=== PATIENT | female | born 1995 | race Caucasian/White ===

== ENCOUNTER 2017-03-06 12:28 | Emergency (ER) | payer BC ==
[~2017-03-06] VITALS: Ht 165.1 cm; Wt 59.0 kg
[~2017-03-06 12:28] MED LIST: CLXUNK
[2017-03-06 12:37] VITALS: TEMP 37; Ht 165.1 cm; Wt 59.0 kg
[2017-03-06] MEDS ORDERED: SODIUM CHLORIDE 0.9% 1000ML 1,000 ML IV STA (13:31)
[2017-03-06] MEDS ORDERED: LORAZEPAM 2 MG/ML 1 ML VIAL IV STA (13:33)
[2017-03-06] MEDS ORDERED: KETOROLAC TROMETHAMINE 30 MG/ML VIAL IV STA (13:33)
[2017-03-06] MEDS ORDERED: DULO-24 PO (13:48)
[2017-03-06 14:22] LABS: BASO % 0.3 %; BASO ABS # 0.02 K/uL (0-0.2); COMPLETE YES; HEMATOCRIT 37.8 % (37-47); IG% 0.1 %; LYMPH % 22.4 %; LYMPH ABS # 1.51 K/uL (1.2-3.4); MEAN CELL VOLUME 92.9 fL (80-100); MEAN CORPUSCULAR HEMOGLOBIN 32.4 pg (25-34); MEAN CORPUSCULAR HGB CONC 34.9 g/dl (32-36); MEAN PLATELET VOLUME 10.1 fL (7.4-10.4); MONO % 11.4 %; NEUT % 62.8 %; PLATELET COUNT 328 K/uL (130-400); RED BLOOD COUNT 4.07 M/uL (4.2-5.4); WHITE BLOOD COUNT 6.75 K/uL (4.8-10.8)
[2017-03-06 14:24] LABS: MANUAL MICROSCOPIC REQUIRED? NO; REVIEW REQ? NO; URINE APPEARANCE CLEAR (CLEAR); URINE BILIRUBIN NEG (NEG); URINE COLOR YELLOW; URINE NITRITE NEG (NEG); URINE PH 8.5 (4.5-7.5); URINE SPECIFIC GRAVITY 1.013 (1.000-1.030); UROBILINOGEN NEG (NEG)
[2017-03-06 14:26] VITALS: O2SAT 100
[2017-03-06 14:32] LABS: BUN/CREATININE RATIO 12.6 (10-20); CREATININE 0.7 mg/dl (0.60-1.20); MAGNESIUM 2.2 mg/dl (1.8-2.4)
[2017-03-06 14:41] LABS: THYROID STIMULATING HORMONE 1.19 uIu/ml (0.300-4.500)
[2017-03-06 14:46] LABS: PREG INTERNAL NEGATIVE QC NEG CLEAR BACKGROUND; PREG INTERNAL POSITIVE QC POS CONTROL LINE
--- NOTE | 2017-03-06 15:18 | DIAGNOSTIC IMAGING REPORT ---
MRI OF THE BRAIN WITHOUT IV CONTRAST CLINICAL HISTORY: Headache. Lower extremity paralysis. Syncope. COMPARISON STUDY: MRI of the brain dated 03/26/2015. TECHNIQUE: MRI of the brain was performed utilizing various T1 and T2-weighted sequences in the axial, sagittal, and coronal planes. IV contrast was not administered for this examination. FINDINGS: Brain parenchyma: The brain parenchyma is normal in appearance. There is no hemorrhage or mass effect. There is no restricted diffusion to suggest acute ischemia. Nunn-white matter differentiation is preserved. No extra-axial fluid collection is seen. The cerebellar tonsils are normal in configuration. Ventricles, sulci, and cisterns: Normal in configuration. Pituitary and sella: Unremarkable. Intracranial vasculature: Normal flow voids are maintained at the skull base. Orbits: The bony orbits are grossly intact. Orbital contents are normal in appearance. Sinuses and mastoids: A tiny retention cyst is noted in the left maxillary antrum. The paranasal sinuses and mastoid air cells are otherwise clear. Calvarium: Unremarkable. Cervical cord: Partially visualized cervical spinal cord is normal in morphology and signal intensity. IMPRESSION: Unremarkable unenhanced MRI of the brain. Electronically signed by: Stanislaw Grace M.D. 03/06/2017 3:16 PM Dictated Date/Time: 03/06/2017 3:13 PM
[2017-03-06 15:54] VITALS: BP 105/63; PULSE 79; O2SAT 100
--- NOTE | 2017-03-06 17:18 | EMERGENCY ROOM VISIT NOTE ---
History Report prepared by Anthony: Sharan Hooker Under the Supervision of: Dr. Ozzie Garza M.D. First contact with patient: 13:26 Chief Complaint: ANXIETY Stated Complaint: SYNCOPE History of Present Illness The patient is a 21 year old female with a history of migraines who presents to the Emergency Room with complaints of improved dizziness that occurred earlier today. The patient was sitting at [employer] when she became dizzy. She is having trouble moving her legs and left arm, which sometimes accompanies her migraines. The patient was also experienced tremors of her extremities which is now resolved. She has a mild headache now and notes that her vision seemed a little blurry earlier today. Her last complex migraine was this past Fall. She follows up with Dr. Blue in Neurology. The patient had Aleve around 1130. She missed her Cymbalta this morning but denies feeling anxious. She denies any history of seizures. The patient denies any recent illness or cold symptoms. Patient denies LOC, fevers, chills, diaphoresis, neck pain, chest pain, breathing difficulties, nausea, vomiting, abdominal pain, back pain, melena, hematochezia, urinary symptoms, numbness, lymphadenopathy, rash, or other complaints. Source of History: patient Onset: today Position: other (global) Quality: other (dizziness) Timing: other (improved) Associated Symptoms: + headache, + weakness Review of Systems See HPI for pertinent positives and negatives. A total of ten systems were reviewed and were otherwise negative. Past Medical & Surgical Medical Problems: (1) Hx of migraines Family History Seizures Social History Smoking Status: Never Smoker Housing Status: lives with family Current/Historical Medications Scheduled Control Pills ( Control Pills), 1 TAB PO DAILY Duloxetine HCl (Cymbalta), 20 MG PO DAILY Allergies Coded Allergies: Acetaminophen (Unverified Allergy, Unknown, ITCHY, 03/06/17) Amoxicillin (Unverified Allergy, Unknown, HIVES, 03/06/17) Codeine (Unverified Allergy, Unknown, ITCHY, 03/06/17) Physical Exam Vital Signs Date Time Temp Pulse Resp B/P Pulse Ox O2 Delivery O2 Flow Rate FiO2 03/06/17 15:54 79 105/63 100 03/06/17 14:26 100 Room Air 03/06/17 13:46 71 102/65 97 89/70 82 106/77 03/06/17 12:37 37.0 80 20 113/72 100 Room Air Physical Exam GENERAL: Awake, alert, well appearing, no distress HENT: Normocephalic, atraumatic. Oropharynx unremarkable. EYES: PERRL. EOMI. Normal conjunctiva. Sclera non-icteric. NECK: Supple. No nuchal rigidity. FROM. No JVD or bruit. RESPIRATORY: CTA CARDIAC: RRR. No murmur. ABDOMEN: Soft, non distended. No tenderness to palpation. No rebound or guarding. No masses. RECTAL: Deferred. MUSCULOSKELETAL: Unremarkable. No edema. No discoloration. Gross motor strength symmetric. NEURO: Cranial nerves 2-12 grossly intact. Speech normal. No pronator drift. Difficulty lifting left arm and left leg, however there is no drift in either extremity. SKIN: No rash or jaundice noted. LYMPH: No adenopathy. Medical Decision & Procedures ER Provider Diagnostic Interpretation: Radiology results as stated below per my review and radiologist interpretation MRI OF THE BRAIN WITHOUT IV CONTRAST CLINICAL HISTORY: Headache. Lower extremity paralysis. Syncope. COMPARISON STUDY: MRI of the brain dated 03/26/2015. TECHNIQUE: MRI of the brain was performed utilizing various T1 and T2-weighted sequences in the axial, sagittal, and coronal planes. IV contrast was not administered for this examination. FINDINGS: Brain parenchyma: The brain parenchyma is normal in appearance. There is no hemorrhage or mass effect. There is no restricted diffusion to suggest acute ischemia. Nunn-white matter differentiation is preserved. No extra-axial fluid collection is seen. The cerebellar tonsils are normal in configuration. Ventricles, sulci, and cisterns: Normal in configuration. Pituitary and sella: Unremarkable. Intracranial vasculature: Normal flow voids are maintained at the skull base. Orbits: The bony orbits are grossly intact. Orbital contents are normal in appearance. Sinuses and mastoids: A tiny retention cyst is noted in the left maxillary antrum. The paranasal sinuses and mastoid air cells are otherwise clear. Calvarium: Unremarkable. Cervical cord: Partially visualized cervical spinal cord is normal in morphology and signal intensity. IMPRESSION: Unremarkable unenhanced MRI of the brain. Electronically signed by: Stanislaw Grace M.D. 03/06/2017 3:16 PM Dictated Date/Time: 03/06/2017 3:13 PM Laboratory Results 03/06/17 14:05 Red Blood Count 4.07, Mean Corpuscular Volume 92.9, Mean Corpuscular Hemoglobin 32.4, Mean Corpuscular Hemoglobin Concent 34.9, Mean Platelet Volume 10.1, Neutrophils (%) (Auto) 62.8, Lymphocytes (%) (Auto) 22.4, Monocytes (%) (Auto) 11.4, Eosinophils (%) (Auto) 3.0, Basophils (%) (Auto) 0.3, Neutrophils # (Auto ) 4.24, Lymphocytes # (Auto) 1.51, Monocytes # (Auto) 0.77, Eosinophils # (Auto ) 0.20, Basophils # (Auto) 0.02 03/06/17 14:05 Test 03/06/17 13:53 03/06/17 14:05 Urine Color YELLOW Urine Appearance CLEAR (CLEAR) Urine pH 8.5 (4.5-7.5) Urine Specific [place] 1.013 (1.000-1.030) Urine Protein NEG (NEG) Urine Glucose (UA) NEG (NEG) Urine Ketones NEG (NEG) Urine Occult Blood NEG (NEG) Urine Nitrite NEG (NEG) Urine Bilirubin NEG (NEG) Urine Urobilinogen NEG (NEG) Urine Leukocyte Esterase NEG (NEG) White Blood Count 6.75 K/uL (4.8-10.8) Red Blood Count 4.07 M/uL (4.2-5.4) Hemoglobin 13.2 g/dL (12.0-16.0) Hematocrit 37.8 % (37-47) Mean Corpuscular Volume 92.9 fL (80-100) Mean Corpuscular Hemoglobin 32.4 pg (25-34) Mean Corpuscular Hemoglobin Concent 34.9 g/dl (32-36) Platelet Count 328 K/uL (130-400) Mean Platelet Volume 10.1 fL (7.4-10.4) Neutrophils (%) (Auto) 62.8 % Lymphocytes (%) (Auto) 22.4 % Monocytes (%) (Auto) 11.4 % Eosinophils (%) (Auto) 3.0 % Basophils (%) (Auto) 0.3 % Neutrophils # (Auto) 4.24 K/uL (1.4-6.5) Lymphocytes # (Auto) 1.51 K/uL (1.2-3.4) Monocytes # (Auto) 0.77 K/uL (0.11-0.59) Eosinophils # (Auto) 0.20 K/uL (0-0.5) Basophils # (Auto) 0.02 K/uL (0-0.2) RDW Standard Deviation 43.7 fL (36.4-46.3) RDW Coefficient of Variation 13.0 % (11.5-14.5) Immature Granulocyte % (Auto) 0.1 % Immature Granulocyte # (Auto) 0.01 K/uL (0.00-0.02) Anion Gap 9.0 mmol/L (3-11) Est Creatinine Clear Calc Drug Dose 116.3 ml/min Estimated GFR () 145.6 Estimated GFR (Non- 125.6 BUN/Creatinine Ratio 12.6 (10-20) Calcium Level 9.0 mg/dl (8.5-10.1) Magnesium Level 2.2 mg/dl (1.8-2.4) Total Bilirubin 0.4 mg/dl (0.2-1) Direct Bilirubin 0.1 mg/dl (0-0.2) Aspartate Amino Transf (AST/SGOT) 14 U/L (15-37) Alanine Aminotransferase (ALT/SGPT) 20 U/L (12-78) Alkaline Phosphatase 50 U/L (45-117) Total Creatine Kinase 39 U/L (26-192) Total Protein 7.3 gm/dl (6.4-8.2) Albumin 3.8 gm/dl (3.4-5.0) Lipase 131 U/L (73-393) Thyroid Stimulating Hormone (TSH) 1.190 uIu/ml (0.300-4.500) Human Chorionic Gonadotropin, Qual NEG (NEG) Laboratory results reviewed by me Medications Administered Medications (Trade) Dose Ordered Sig/Greta Route Start Time Stop Time Status Last Admin Dose Admin Sodium Chloride (Nss 1000ml) 1,000 ml @ 999 mls/hr Q1H1M STAT IV 03/06/17 13:31 03/06/17 14:31 DC 03/06/17 14:20 999 MLS/HR Ketorolac Tromethamine (Toradol Inj) 10 mg NOW STAT IV 03/06/17 13:33 03/06/17 13:36 DC 03/06/17 14:20 10 MG Lorazepam (Ativan Inj) 0.5 mg NOW STAT IV 03/06/17 13:33 03/06/17 13:36 DC 03/06/17 14:21 0.5 MG ECG Indication: weakness Rate (beats per minute): 69 Rhythm: normal sinus Findings: no acute ischemic change, no ectopy ED Course 1328: The patient was evaluated in room C2b. A complete history and physical exam was performed. 1331: NSS 1000 ml @ 999 mls/hr. 1333: Ativan 0.5 mg IV, Toradol 10 mg IV. 1430: Updated the patient. 1530: The patient is now able to move all extremities without difficulty. Updated her and her parents. The patient will be prepared for discharge. 1535: Discussed the case with Dr. Garcia, Neurologist. Medical Decision Prior records/ancillary studies reviewed. Triage Nursing notes reviewed and agree them. The patient's history was concerning for headache. Differential diagnosis: Etiologies such as complex migraine headache, meningitis, sinusitis, CO exposure , ICH, SAH, infection, tumor, headache, sinus thrombosis, arterial dissection, CVA, as well as others were entertained. Physical examination findings: As above. Non-focal. ER treatment provided: Normal saline hydration IV Toradol IV Ativan On reassessment the patient felt better. Diagnostics interpreted by me: ECG: Normal as above. The labs revealed a normal CBC and chemistry panel. Magnesium, , LFTs , and lipase were negative. Imaging studies: MRI as above After the above treatment and diagnostic testing the patient was reevaluated and all symptoms resolved. She felt back to normal. Consultation: A consultation was placed with the neurologist traffic monitor specialist Dr. Garcia. The case was discussed and diagnostics were reviewed. He felt that this is likely a complex migraine as the patient's symptoms resolved completely and she has a history of the same. He asked that the patient call the office tomorrow to set up follow- up appointment. By the evaluation outlined above emergent etiologies such as meningitis, sinusitis, CO exposure, ICH, SAH, infection, temporal arteritis, tumor, sinus thrombosis, arterial dissection, as well as others were deemed relatively unlikely. The patient and family were informed about the findings as listed above. All questions were answered and they were pleased with the treatment. Return instructions were outlined and the patient was discharged in stable condition. Outpatient prescription management: None Referral: The patient was referred back to neurology for a recheck of the current condition. The chart was completed utilizing [employer] Speech voice recognition software. Grammatical errors, random word insertions, pronoun errors, and incomplete sentences are an occasional consequence of this system due to software limitations, ambient noise, and hardware issues. Any formal questions or concerns about the content, text, or information contained within the body of this dictation should be directly addressed to the physician for clarification. Consults Time Called: 1529 Consulting Physician: Dr. Garcia, Neurologist Returned Call: [phone]: Discussed the case with Dr. Garcia, Neurologist. Impression Primary Impression: Headache Additional Impression: Weakness Scribe Attestation The scribe's documentation has been prepared under my direction and personally reviewed by me in its entirety. I confirm that the note above accurately reflects all work, treatment, procedures, and medical decision making performed by me. Departure Information Dispostion Home / Self-Care Referrals No Doctor, Assigned (PCP) Forms HOME CARE DOCUMENTATION FORM, IMPORTANT VISIT INFORMATION Patient Instructions My [facility] Additional Instructions HEADACHE INSTRUCTIONS: DO NOT drive, drink alcohol, operate machinery, or perform dangerous activities today. You were given medications in the ER that can affect your ability to safely function or operate a vehicle. Rest today in a quiet, peaceful, dark environment and get a full 8-10 hrs of sleep tonight. Avoid loud noises, smoke/smoking, alcohol, bright lights, stress, or physical exertion today to minimize the chance the headache may return. Continue current medications. Ibuprofen(Motrin, Advil) may be used for fever or pain. Use 600mg every six hours as needed. Take with food. Avoid using more than 2400mg in a 24 hour period. Do not use 2400mg per day for more than three consecutive days without physician direction. Prolonged inappropriate use can lead to stomach upset or ulcers. Return to the ER for passing out, worsening headache, vision problems, neck stiffness/pain, fevers, vomiting, worsening of your condition, or as needed. Follow up with your neurologist on Tuesday for a recheck of your current condition. Problem Qualifiers
[2017-03-24] MEDS ORDERED: CYM/30 PO (13:20)
[2017-03-24] MEDS ORDERED: MULT-506 PO (13:20)
[2017-03-24] MEDS ORDERED: CETI10CA PO (13:20)
[2017-03-24] MEDS ORDERED: PROP1TAB PO (13:20)
[2017-03-24] MEDS ORDERED: BCPILLS PO (13:48)
== END 2017-03-06 15:55 | disposition home or self-care (01) ==
LOC: EDBD 12:28 → C.EDC 12:29
DX: R51 Headache (principal); R53.1 Weakness; Z82.0 Family history of epilepsy and other diseases of the nervous system

== ENCOUNTER 2017-03-09 12:06 | Emergency (ER) | payer BC ==
[~2017-03-09] VITALS: Ht 165.1 cm; Wt 58.4 kg
[~2017-03-09 12:06] MED LIST changes: -CLXUNK; +DULO-24 PO
[2017-03-09 12:13] VITALS: Ht 165.1 cm; Wt 58.4 kg
[2017-03-09] MEDS ORDERED: SODIUM CHLORIDE 0.9% 1000ML 1,000 ML IV STA (12:49)
[2017-03-09] MEDS ORDERED: LORAZEPAM 2 MG/ML 1 ML VIAL IV STA ×2 (12:49→15:13)
[2017-03-09] MEDS ORDERED: METH4PAK PO (13:20)
[2017-03-09] MEDS ORDERED: MELA1TAB5 PO (13:20)
[2017-03-09 13:26] LABS: BASO % 0.2 %; BASO ABS # 0.02 K/uL (0-0.2); COMPLETE YES; EOS % 0.2 %; HEMATOCRIT 39.5 % (37-47); IG% 0.3 %; LYMPH ABS # 1.19 K/uL (1.2-3.4); MEAN CELL VOLUME 95.4 fL (80-100); MEAN CORPUSCULAR HEMOGLOBIN 32.6 pg (25-34); MEAN CORPUSCULAR HGB CONC 34.2 g/dl (32-36); MEAN PLATELET VOLUME 10.2 fL (7.4-10.4); MONO % 7.3 %; PLATELET COUNT 354 K/uL (130-400); RED BLOOD COUNT 4.14 M/uL (4.2-5.4); WHITE BLOOD COUNT 13.15 K/uL (4.8-10.8)
[2017-03-09 14:01] LABS: BUN/CREATININE RATIO 9.3 (10-20); CALCIUM 9.1 mg/dl (8.5-10.1); CREATININE 0.78 mg/dl (0.60-1.20); POTASSIUM 3.9 mmol/L (3.5-5.1)
[2017-03-09 14:04] LABS: ALB/GLOB RATIO 0.9 (0.9-2)
[2017-03-09 15:21] LABS: LYME DISEASE AB IGG NEG (NEG)
[2017-03-09 15:24] LABS: LYME DISEASE AB IGM NEG (NEG)
[2017-03-09] MEDS ORDERED: ATIVAN 1MG HOMEPACK PO ONE (15:30)
--- NOTE | 2017-03-09 15:31 | EMERGENCY ROOM VISIT NOTE ---
History Report prepared by Anthony: Lesvia Olivera Under the Supervision of: Dr. Rafy Teague M.D. First contact with patient: 12:40 Chief Complaint: OTHER COMPLAINT Stated Complaint: MUSCLE TWITCHING/SPASMS History of Present Illness The patient is a 21 year old female who presents to the Emergency Room with complaints of intermittent twitching that started 3 days ago. She is unsure of if the twitching occurs while she sleeps, but she has been able to sleep normally. The patient's symptoms started 3 days ago when she was in [employer]odoxy. The patient states that she felt dizzy and developed a headache while she was in orthodoxy. She states that with her typical migraines her limbs occasionally go numb, but instead she developed twitching. The patient's mother states that their friend is a PA-C and she recommended coming into the ED 3 days ago. The patient was worked up for the same symptoms when she came to the ED 3 days ago and a MRI of her brain was unremarkable. The patient also had a negative test. The patient has an appointment to follow-up with Neurology tomorrow, but the patient states that she has been missing class secondary to the twitching so she felt that she needed to be evaluated sooner. The patient denies any trouble eating. She also experiences intermittent headaches, but denies any headache currently. The patient denies any recent drugs or alcohol. The patient's mother adds that the patient started a Medrol pack 2 days ago. The patient's mother also adds that the patient fell 3 nights ago while she was getting ready for bed. Source of History: patient Onset: 3 days ago Position: other (global) Quality: other (twitching) Timing: intermittent Associated Symptoms: + headache Note: no trouble eating Review of Systems See HPI for pertinent positives & negatives. A total of 10 systems reviewed and were otherwise negative. Past Medical & Surgical Medical Problems: (1) Hx of migraines Family History Seizures Social History Smoking Status: Never Smoker Housing Status: lives with family Current/Historical Medications Scheduled Control Pills ( Control Pills), 1 TAB PO DAILY Duloxetine HCl (Cymbalta), 1 CAP PO DAILY Melatonin (Kp Melatonin), 1 TAB PO HS Methylprednisolone (Medrol Dosepak), 1 PKT PO UD Multivitamin (Multivitamin), 1 TAB PO DAILY Propranolol (Inderal), 60 MG PO HS Scheduled PRN Cetirizine Hcl (Zyrtec Allergy), 10 MG PO DAILY PRN for PRN FOR ALLERGIES Allergies Coded Allergies: Acetaminophen (Unverified Allergy, Unknown, ITCHY, 03/09/17) Amoxicillin (Unverified Allergy, Unknown, HIVES, 03/09/17) Codeine (Unverified Allergy, Unknown, ITCHY, 03/09/17) Physical Exam Vital Signs Date Time Temp Pulse Resp B/P Pulse Ox O2 Delivery O2 Flow Rate FiO2 03/09/17 15:48 36.6 72 18 109/74 99 03/09/17 15:24 72 109/74 99 03/09/17 13:45 77 104/66 100 03/09/17 12:13 36.6 84 18 110/72 99 Room Air Physical Exam GENERAL: Patient is well appearing and in no acute distress. HEENT: No acute trauma, normocephalic atraumatic, mucous membranes moist, no nasal congestion, no scleral icterus. NECK: No stridor, no adenopathy, no meningismus, trachea is midline. LUNGS: No dyspnea. Clear to auscultation and equal bilaterally. No wheeze, no rhonchi. HEART: Regular rate and rhythm. No murmurs, rubs, gallops appreciated. ABDOMEN: Soft, nontender, bowel sounds positive, no masses appreciated, no peritonitis. BACK: No midline tenderness, no CVA tenderness EXTREMITIES: Normal motion all extremities, no cyanosis, no edema. NEUROLOGIC: Alert and oriented, periodic stuttering speech vs clear non- problematic speech, periodic shaking with course to fine tremors that are nonspecific throughout arms and upper body, when asked legs shake, no acute motor or sensory deficits, no focal weakness, cranial nerves grossly intact. SKIN: No rash, no jaundice, no diaphoresis. Medical Decision & Procedures Laboratory Results 03/09/17 13:05 Red Blood Count 4.14, Mean Corpuscular Volume 95.4, Mean Corpuscular Hemoglobin 32.6, Mean Corpuscular Hemoglobin Concent 34.2, Mean Platelet Volume 10.2, Neutrophils (%) (Auto) 83.0, Lymphocytes (%) (Auto) 9.0, Monocytes (%) (Auto) 7.3, Eosinophils (%) (Auto) 0.2, Basophils (%) (Auto) 0.2, Neutrophils # (Auto) 10.92, Lymphocytes # (Auto) 1.19, Monocytes # (Auto) 0.96, Eosinophils # (Auto) 0.02, Basophils # (Auto) 0.02 03/09/17 13:05 Test 03/09/17 13:05 White Blood Count 13.15 K/uL (4.8-10.8) Red Blood Count 4.14 M/uL (4.2-5.4) Hemoglobin 13.5 g/dL (12.0-16.0) Hematocrit 39.5 % (37-47) Mean Corpuscular Volume 95.4 fL (80-100) Mean Corpuscular Hemoglobin 32.6 pg (25-34) Mean Corpuscular Hemoglobin Concent 34.2 g/dl (32-36) Platelet Count 354 K/uL (130-400) Mean Platelet Volume 10.2 fL (7.4-10.4) Neutrophils (%) (Auto) 83.0 % Lymphocytes (%) (Auto) 9.0 % Monocytes (%) (Auto) 7.3 % Eosinophils (%) (Auto) 0.2 % Basophils (%) (Auto) 0.2 % Neutrophils # (Auto) 10.92 K/uL (1.4-6.5) Lymphocytes # (Auto) 1.19 K/uL (1.2-3.4) Monocytes # (Auto) 0.96 K/uL (0.11-0.59) Eosinophils # (Auto) 0.02 K/uL (0-0.5) Basophils # (Auto) 0.02 K/uL (0-0.2) RDW Standard Deviation 45.5 fL (36.4-46.3) RDW Coefficient of Variation 13.1 % (11.5-14.5) Immature Granulocyte % (Auto) 0.3 % Immature Granulocyte # (Auto) 0.04 K/uL (0.00-0.02) Anion Gap 9.0 mmol/L (3-11) Est Creatinine Clear Calc Drug Dose 104.4 ml/min Estimated GFR () 127.7 Estimated GFR (Non- 110.2 BUN/Creatinine Ratio 9.3 (10-20) Calcium Level 9.1 mg/dl (8.5-10.1) Total Bilirubin 0.4 mg/dl (0.2-1) Aspartate Amino Transf (AST/SGOT) 9 U/L (15-37) Alanine Aminotransferase (ALT/SGPT) 20 U/L (12-78) Alkaline Phosphatase 50 U/L (45-117) Total Creatine Kinase 33 U/L (26-192) Total Protein 7.8 gm/dl (6.4-8.2) Albumin 3.7 gm/dl (3.4-5.0) Globulin 4.1 gm/dl (2.5-4.0) Albumin/Globulin Ratio 0.9 (0.9-2) Lyme Disease IgG Antibody NEG (NEG) Lyme Disease IgM Antibody NEG (NEG) Monoscreen NEG (NEG) Laboratory results as reviewed by me. Medications Administered Medications (Trade) Dose Ordered Sig/Greta Route Start Time Stop Time Status Last Admin Dose Admin Lorazepam 0.5 mg 0.5 mg NOW STAT IV 03/09/17 12:49 03/09/17 12:51 DC 03/09/17 13:10 0.5 MG Sodium Chloride (Nss 1000ml) 1,000 ml @ 999 mls/hr Q1H1M STAT IV 03/09/17 12:49 03/09/17 13:49 DC 03/09/17 13:12 999 MLS/HR Lorazepam (Ativan Inj) 0.5 mg NOW STAT IV 03/09/17 15:13 03/09/17 15:14 DC 03/09/17 15:24 0.5 MG Lorazepam (Ativan 1MG Home Pack) 1 homepack UD ONCE PO 03/09/17 15:30 03/09/17 15:31 DC 03/09/17 15:43 1 HOMEPACK ED Course 1243: The patient was evaluated in room B7. A complete history and physical exam was performed. 1249: Ordered Sodium Chloride 1000 ml @ 999 mls/hr IV, Ativan Inj 0.5 mg IV 1322: I reassessed the patient. Her shakes have resolved, but when I asked about shaking she began to slightly shake again. 1445: Discussed the patient's case with Dr. Bowling - Neurology. She agrees with having the patient follow-up in the office tomorrow and she is going to see the patient. She also feels that it is perfectly reasonable to do outpatient follow-up and give her Ativan for at home. 1508: I reassessed the patient. She is experiencing an increase in her tremors. The patient and her mother are comfortable with going home and following up tomorrow if the Lyme is negative. However, the machine for the Lyme test was broken so it is going to be another 15-30 minutes. 1513: Ativan Inj 0.5 mg IV 1530: Ordered Lorazepam 1 homepack PO 1535: Reevaluated the patient. Discussed results and discharge instructions: the patient and her mother verbalized understanding and agreement. The patient is ready for discharge. Medical Decision Differential: Sepsis, Infectious (UTI/Pneumonia/Meningitis/etc), Metabolic/ Electrolyte Abnormality, Cardiac, Hepatic, Endocrine, Toxicologic, Neurologic, amongst other pathologies entertained. Pleasant 21 yr old female with headache and weakness episode evaluated a few days ago with extensive testing including normal MRI brain. Arrives for continued shaking since then. Clearly seems to be voluntary as worsens any time I bring it up and symptoms are very variable with periodic stuttering. With normal brain, normal labs, no meningitic/encephalopathic findings, normal lyme, and non-choreiform movements I do not feel she requires further inpatient testing/evaluation. Reviewed with her neurologist who agrees and will evaluate her in clinic tomorrow. She is stable and in no distress and symptoms clearly improve when given Ativan. Mild dry red rash over cheeks/lateral arms towards discharge but she does not appear to be allergic and I suspect it is more reactive to sheets as not under shift. Reviewed symptoms requiring return with mother and patient. Consults Time Called: [phone] Consulting Physician: Dr. Bowling - Neurology Returned Call: [phone] Discussed the patient's case with Dr. Bowling - Neurology. She agrees with having the patient follow-up in the office tomorrow and she is going to see the patient. She also feels that it is perfectly reasonable to do outpatient follow- up and give her Ativan for at home. Impression Primary Impression: Tremor Additional Impression: Episode of shaking Scribe Attestation The scribe's documentation has been prepared under my direction and personally reviewed by me in its entirety. I confirm that the note above accurately reflects all work, treatment, procedures, and medical decision making performed by me. Departure Information Dispostion Home / Self-Care Referrals Katelynn Steen M.D. (PCP) Forms HOME CARE DOCUMENTATION FORM, IMPORTANT VISIT INFORMATION, WORK / SCHOOL INSTRUCTIONS Patient Instructions My [facility] Additional Instructions Follow up with Neurologist tomorrow as planned. Return immediately if severe headache, neck stiffness, fevers, passing out, altered mental status or other concerns. You have received a benzodiazepine sedative medication. These medications may cause drowsiness and should not be used with other sedative medications. Do not drive, drink alcohol, perform dangerous activities, nor make important decisions after taking these medications. vermin exterminator use or inappropriate use may lead to addiction. Problem Qualifiers
[2017-03-09 15:48] VITALS: BP 109/74; PULSE 72; TEMP 36.6; O2SAT 99
[2017-03-24] MEDS ORDERED: PROP1TAB PO (13:20)
[2017-03-24] MEDS ORDERED: CETI10CA PO (13:20)
[2017-03-24] MEDS ORDERED: MULT-506 PO (13:20)
[2017-03-24] MEDS ORDERED: CYM/30 PO (13:20)
[2017-03-24] MEDS ORDERED: BCPILLS PO (13:48)
== END 2017-03-09 15:50 | disposition home or self-care (01) ==
LOC: C.EDB 12:07
DX: R25.1 Tremor, unspecified (principal); R25.3 Fasciculation; Z79.3 Long term (current) use of hormonal contraceptives; Z79.899 Other long term (current) drug therapy; Z82.0 Family history of epilepsy and other diseases of the nervous system

== ENCOUNTER 2017-03-24 17:16 | Emergency (ER) | payer BC ==
[~2017-03-24] VITALS: Ht 165.1 cm; Wt 57.2 kg
[~2017-03-24 17:16] MED LIST changes: +BCPILLS PO; +CETI10CA PO; +CYM/30 PO; -DULO-24 PO; +MELA1TAB5 PO; +METH4PAK PO; +MULT-506 PO; +PROP1TAB PO
[2017-03-24 17:23] VITALS: TEMP 36.9; Ht 165.1 cm; Wt 57.2 kg
[2017-03-24] MEDS ORDERED: ONDANSETRON INJ 2 MG/ML 2 ML VIAL IV STA (17:42)
[2017-03-24] MEDS ORDERED: SODIUM CHLORIDE 0.9% 1000ML 1,000 ML, SODIUM CHLORIDE 0.9% 1000ML 1,000 ML IV ONE (17:45)
[2017-03-24] MEDS ORDERED: MELA3TAB PO (17:51)
[2017-03-24] MEDS ORDERED: DIGE1CAP7 PO (17:51)
[2017-03-24] MEDS ORDERED: HYDR25CA PO (17:51)
[2017-03-24] MEDS ORDERED: MAGN250T22 PO (17:51)
[2017-03-24] MEDS ORDERED: CYAN100020 PO (17:51)
[2017-03-24 18:43] LABS: HEMATOCRIT 41.9 % (37-47); MEAN CELL VOLUME 93.5 fL (80-100); MEAN CORPUSCULAR HEMOGLOBIN 31.3 pg (25-34); MEAN CORPUSCULAR HGB CONC 33.4 g/dl (32-36); MEAN PLATELET VOLUME 9.8 fL (7.4-10.4); PLATELET COUNT 241 K/uL (130-400); RED BLOOD COUNT 4.48 M/uL (4.2-5.4); WHITE BLOOD COUNT 8.24 K/uL (4.8-10.8)
[2017-03-24 19:03] LABS: BUN/CREATININE RATIO 10.4 (10-20); CALCIUM 9.2 mg/dl (8.5-10.1); CREATININE 0.72 mg/dl (0.60-1.20); POTASSIUM 3.9 mmol/L (3.5-5.1)
[2017-03-24 19:06] LABS: ALB/GLOB RATIO 0.8 (0.9-2)
[2017-03-24 19:13] LABS: BASO % 0.4 %; BASO ABS # 0.03 K/uL (0-0.2); COMPLETE YES; DOHLE BODIES 1+; EOS % 0.1 %; IG% 0.6 %; LYMPH % 8.7 %; LYMPH ABS # 0.72 K/uL (1.2-3.4); MONO % 25.5 %; NEUT % 64.7 %; TOXIC GRANULATION 1+
[2017-03-24 20:03] LABS: URINE APPEARANCE CLEAR (CLEAR); URINE COLOR DK YELLOW; URINE EPITHELIAL CELL AUTO >30 /lpf (0-5); URINE NITRITE NEG (NEG); URINE PH 6.5 (4.5-7.5); URINE SPECIFIC GRAVITY 1.032 (1.000-1.030); UROBILINOGEN NEG (NEG); ZZUR CULT IF INDIC CLEAN CATCH NO
[2017-03-24 20:07] LABS: MANUAL MICROSCOPIC REQUIRED? NO; REVIEW REQ? NO; URINE BILIRUBIN 1+ (NEG)
[2017-03-24] MEDS ORDERED: ONDANSETRON HOME PACK 4MG OD TAB PO ONE (21:30)
[2017-03-24 21:42] VITALS: BP 111/66; PULSE 96; O2SAT 98
--- NOTE | 2017-03-25 22:02 | EMERGENCY ROOM VISIT NOTE ---
History First contact with patient: 17:25 Chief Complaint: FEVER Stated Complaint: DEHYDRATION,DIARRHEA,FEVER History of Present Illness The patient is a 21 year old female who presents to the Emergency Room with complaints of fever and profound diarrhea for the past 3 days. The patient states that she is having 10 to 12 episode of watery diarrhea each day. She denies recent travel history or antibiotic usage. Patient has abdominal cramping but not distinct abdominal pain. She also reports a low-grade fever at home. The patient went to urgent care clinic who referred her here for her dehydration. The patient has not had symptoms like this chronically. She does not have known exposure to disease. She rates her discomfort a 7/10. Review of Systems More than 10 systems were reviewed and otherwise negative with the exception of history of present illness. Past Medical/Surgical History Medical Problems: (1) Hx of migraines Family History Seizures Social History Smoking Status: Never Smoker Housing Status: lives with family Current/Historical Medications Scheduled Control Pills ( Control Pills), 1 TAB PO DAILY Cyanocobalamin (Vitamin B12), 1 TAB PO HS Digestive Enzymes (Digestive Enzymes), 1 CAP PO HS Duloxetine HCl (Cymbalta), 30 MG PO QAM Magnesium Oxide (Magnesium), 250 MG PO HS Melatonin (Melatonin), 3 MG PO HS Multivitamin (Multivitamin), 1 TAB PO HS Propranolol (Inderal), 60 MG PO HS Scheduled PRN Cetirizine Hcl (Zyrtec Allergy), 10 MG PO DAILY PRN for Allergy Symptoms Hydroxyzine Pamoate (Vistaril), 25 MG PO Q4H PRN for Anxiety Allergies Coded Allergies: Acetaminophen (Unverified Allergy, Unknown, ITCHY, 03/24/17) Amoxicillin (Unverified Allergy, Unknown, HIVES, 03/24/17) Codeine (Unverified Allergy, Unknown, ITCHY, 03/24/17) Physical Exam Vital Signs Date Time Temp Pulse Resp B/P Pulse Ox O2 Delivery O2 Flow Rate FiO2 03/24/17 21:42 96 16 111/66 98 Room Air 03/24/17 21:40 111/66 03/24/17 19:30 105 15 95/62 99 Room Air 03/24/17 17:23 36.9 111 18 107/71 97 Room Air Pain Rating (0-10): 0 Physical Exam VITALS: Vitals are noted on the nurse's note and reviewed by myself. Vital signs stable. GENERAL: Well-developed, well-nourished, white female, who is in no acute distress and resting comfortably. Patient is cooperative with the examination. HEAD: Normocephalic atraumatic. EARS: External ear normal. External auditory canals clear, tympanic membranes pearly oden without erythema or effusion bilaterally. EYES: Pupils equal round and reactive to light and accommodation. Conjunctivae without injection, sclerae without icterus. Extraocular movements intact. NOSE: Patent, turbinates without inflammation or discharge. MOUTH: Mucous membranes dry. Tonsils are not enlarged. Pharynx without erythema, blood, or exudate. Uvula midline. Airway patent. NECK: Supple without nuchal rigidity. No lymphadenopathy. No thyromegaly. Cervical spine is nontender. HEART: Regular rate and rhythm without murmurs gallops or rubs. LUNGS: Clear to auscultation bilaterally without wheezes, rales or rhonchi. No retractions or accessory muscle use. ABDOMEN: Positive normal bowel sounds x 4. Soft, nontender, without masses or organomegaly. No guarding or rebound tenderness. MUSCULOSKELETAL: No muscle atrophy, erythema, or edema noted. Full range of motion without joint tenderness in all extremities. Medical Decision & Procedures Laboratory Results 03/24/17 18:20 Red Blood Count 4.48, Mean Corpuscular Volume 93.5, Mean Corpuscular Hemoglobin 31.3, Mean Corpuscular Hemoglobin Concent 33.4, Mean Platelet Volume 9.8, Neutrophils (%) (Auto) 64.7, Lymphocytes (%) (Auto) 8.7, Monocytes (%) (Auto) 25.5, Eosinophils (%) (Auto) 0.1, Basophils (%) (Auto) 0.4, Neutrophils # (Auto ) 5.33, Lymphocytes # (Auto) 0.72, Monocytes # (Auto) 2.10, Eosinophils # (Auto ) 0.01, Basophils # (Auto) 0.03 03/24/17 18:20 Test 03/24/17 18:20 03/24/17 18:40 03/24/17 20:05 White Blood Count 8.24 K/uL (4.8-10.8) Red Blood Count 4.48 M/uL (4.2-5.4) Hemoglobin 14.0 g/dL (12.0-16.0) Hematocrit 41.9 % (37-47) Mean Corpuscular Volume 93.5 fL (80-100) Mean Corpuscular Hemoglobin 31.3 pg (25-34) Mean Corpuscular Hemoglobin Concent 33.4 g/dl (32-36) Platelet Count 241 K/uL (130-400) Mean Platelet Volume 9.8 fL (7.4-10.4) Neutrophils (%) (Auto) 64.7 % Lymphocytes (%) (Auto) 8.7 % Monocytes (%) (Auto) 25.5 % Eosinophils (%) (Auto) 0.1 % Basophils (%) (Auto) 0.4 % Neutrophils # (Auto) 5.33 K/uL (1.4-6.5) Lymphocytes # (Auto) 0.72 K/uL (1.2-3.4) Monocytes # (Auto) 2.10 K/uL (0.11-0.59) Eosinophils # (Auto) 0.01 K/uL (0-0.5) Basophils # (Auto) 0.03 K/uL (0-0.2) RDW Standard Deviation 45.3 fL (36.4-46.3) RDW Coefficient of Variation 13.1 % (11.5-14.5) Immature Granulocyte % (Auto) 0.6 % Immature Granulocyte # (Auto) 0.05 K/uL (0.00-0.02) Toxic Granulation 1+ Dohle Bodies 1+ Urine Color DK YELLOW Urine Appearance CLEAR (CLEAR) Urine pH 6.5 (4.5-7.5) Urine Specific [place] 1.032 (1.000-1.030) Urine Protein 1+ (NEG) Urine Glucose (UA) NEG (NEG) Urine Ketones 3+ (NEG) Urine Occult Blood 2+ (NEG) Urine Nitrite NEG (NEG) Urine Bilirubin 1+ (NEG) Urine Urobilinogen NEG (NEG) Urine Leukocyte Esterase NEG (NEG) Urine WBC (Auto) 1-5 /hpf (0-5) Urine RBC (Auto) >30 /hpf (0-4) Urine Hyaline Casts (Auto) 1-5 /lpf (0-5) Urine Epithelial Cells (Auto) >30 /lpf (0-5) Urine Bacteria (Auto) NEG (NEG) Urine Test NEG (NEG) Anion Gap 10.0 mmol/L (3-11) Est Creatinine Clear Calc Drug Dose 113.1 ml/min Estimated GFR () 140.7 Estimated GFR (Non- 121.4 BUN/Creatinine Ratio 10.4 (10-20) Calcium Level 9.2 mg/dl (8.5-10.1) Total Bilirubin 1.0 mg/dl (0.2-1) Aspartate Amino Transf (AST/SGOT) 25 U/L (15-37) Alanine Aminotransferase (ALT/SGPT) 38 U/L (12-78) Alkaline Phosphatase 56 U/L (45-117) Total Protein 7.8 gm/dl (6.4-8.2) Albumin 3.5 gm/dl (3.4-5.0) Globulin 4.3 gm/dl (2.5-4.0) Albumin/Globulin Ratio 0.8 (0.9-2) Lipase 51 U/L (73-393) Lactic Acid Level 1.0 mmol/L (0.4-2.0) Date/Time Source Procedure Growth Status 03/24/17 20:05 Stool C.difficile Toxin B Gene (PCR) - Final No C. difficile toxin B gene detected Complete Medications Administered Medications (Trade) Dose Ordered Sig/Greta Route Start Time Stop Time Status Last Admin Dose Admin Sodium Chloride/ Sodium Chloride (Nss 1000ml/Nss 1000ml) 2,000 ml @ 999 mls/hr Q2H1M ONCE IV 03/24/17 17:45 03/24/17 19:45 DC 03/24/17 18:40 999 MLS/HR Ondansetron HCl (Zofran Inj) 4 mg NOW STAT IV 03/24/17 17:42 03/24/17 17:44 DC 03/24/17 18:40 4 MG ED Course Physical exam and history were performed. Nursing notes and EMR were reviewed. Patient appears to have diarrhea symptoms for the past few days. She does appear mildly dehydrated on physical examination. IV access was established and labs were obtained. The patient was hydrated and medicated as above. Stool samples were obtained. The patient's blood work is as above and does not show a significantly elevated with blood cell count for his anemia, bandemia, or significant electrolyte imbalance. C. difficile is negative with stool cultures pending. Her lactic acid is negative blood cultures pending. The patient was monitored for several hours here in the emergency department, and she did feel better after hydration and antiemetics. She and I had a lengthy conversation about further care, and she appears stable for discharge home. I suspect her symptoms are likely viral or foodborne in nature and should improve with supportive measures. The patient was asked to follow-up with her primary care physician's office in 36-48 hours for recheck. She was otherwise invited back to the ER with any new, worsening, or concerning symptoms. The chart was completed utilizing [employer] Speech Voice Recognition Software. Grammatical errors, random word insertions, pronoun errors, and incomplete sentences are an occasional consequence of this system due to software limitations, ambient noise, and hardware issues. Any formal questions or concerns about the content, text, or information contained within the body of this dictation should be directly addressed to the provider for clarification. . Medical Decision Differential diagnosis: Etiologies such as gastroenteritis, food borne illness, infections, appendicitis , diverticulitis, inflammatory bowel disease, obstruction, GI bleed, biliary pathology, as well as others were entertained. Impression Primary Impression: Diarrhea Additional Impression: Dehydration Departure Information Dispostion Home / Self-Care Condition GOOD Forms HOME CARE DOCUMENTATION FORM, IMPORTANT VISIT INFORMATION Patient Instructions My [facility] Additional Instructions You were seen and evaluated today on an emergency basis only. This is not a substitute for, or an effort to provide, complete comprehensive medical care. It is not possible to recognize and treat all injuries or illnesses in a single emergency department visit. For this reason it is recommended that you followup with your primary care physician in 36-48 hours for recheck of your condition. Drink plenty fluids and remain well hydrated. Zofran 1 tablet every 6 hrs as needed for nausea. You are welcome to return to the emergency department anytime with new, worsening, or concerning symptoms. Problem Qualifiers
== END 2017-03-24 21:40 | disposition home or self-care (01) ==
LOC: C.EDB 17:17
DX: R19.7 Diarrhea, unspecified (principal); E86.0 Dehydration; Z79.899 Other long term (current) drug therapy; Z82.0 Family history of epilepsy and other diseases of the nervous system; Z88.1 Allergy status to other antibiotic agents; Z88.6 Allergy status to analgesic agent

== ENCOUNTER → 2017-03-28 | Day surgery (SDC) | payer BC ==
[~2017-03-28] VITALS: Ht 165.1 cm; Wt 55.5 kg
[~2017-03-28] MED LIST changes: +CYAN100020 PO; +DIGE1CAP7 PO; +HYDR25CA PO; +MAGN250T22 PO; -MELA1TAB5 PO; +MELA3TAB PO; -METH4PAK PO; +ONDANSETRON 4MG OD TAB PO PRN
[2017-03-28] MEDS: SODIUM CHLORIDE 0.9% 1000ML 1,000 ML IV SCH ×2 (10:17→11:20)
[2017-03-28 10:20] VITALS: BP 92/59; PULSE 70; TEMP 36.6; O2SAT 98; Ht 165.1 cm; Wt 55.5 kg
== END | disposition home or self-care (01) ==
LOC: C.MTU 09:42
PROVIDERS: ATTEND Nurse Practitioner
DX: A02.9 Salmonella infection, unspecified (principal); R19.7 Diarrhea, unspecified

== ENCOUNTER → 2017-04-05 | Outpatient (CLI) | payer BC ==
[~2017-04-05] MED LIST changes: -ONDANSETRON 4MG OD TAB PO PRN
--- NOTE | 2017-04-08 17:31 | EEG Procedure Note ---
EEG Procedure Note Date of Service April 05, 2017. Start / End Times Start Time: 1:43 PM End Time: 2:03 PM Referring Physician Kalli Bowling History This is a 21-year-old female with shaking spells. EEG for further evaluation of possible seizure etiology. Home Medication List Scheduled Control Pills ( Control Pills), 1 TAB PO DAILY Cyanocobalamin (Vitamin B12), 1 TAB PO HS Digestive Enzymes (Digestive Enzymes), 1 CAP PO HS Duloxetine HCl (Cymbalta), 30 MG PO QAM Magnesium Oxide (Magnesium), 250 MG PO HS Melatonin (Melatonin), 3 MG PO HS Multivitamin (Multivitamin), 1 TAB PO HS Propranolol (Inderal), 60 MG PO HS Scheduled PRN Cetirizine Hcl (Zyrtec Allergy), 10 MG PO DAILY PRN for Allergy Symptoms Hydroxyzine Pamoate (Vistaril), 25 MG PO Q4H PRN for Anxiety Description This is a 21 electrode EEG with a single channel dedicated to limited EKG. The electrodes were placed in accordance with the International 10-20 system. At the start of the recording the patient was in an awake state. Background was well organized and composed of symmetric mixed alpha and beta frequencies. There was a symmetric well-formed moderate amplitude 10-11 Hz posterior dominant rhythm that was reactive to eye opening and closure. Hyperventilation with good effort produced no abnormalities. Intermittent photic stimulation at various frequencies produced no abnormalities. Drowsiness was indicated by loss of muscle artifact and slowing of the background rhythm. There was no sleep transients. Interpretation This is a normal awake and drowsy routine EEG. There was no electrographic seizures or epileptiform discharges. Clinical Correlation A normal EEG does not rule out epilepsy if there is a strong clinical suspicion.
== END | disposition home or self-care (01) ==
LOC: C.NEUR 13:24
PROVIDERS: ATTEND Psychiatry & Neurology Neurology
DX: R25.1 Tremor, unspecified (principal)

== ENCOUNTER → 2017-11-16 | Outpatient (CLI) | payer BC | END | disposition home or self-care (01) | LOC: C.LABSPEC 17:39 | PROVIDERS: ATTEND Physician Assistant | DX: L29.8 Other pruritus (principal) ==

== ENCOUNTER → 2018-06-09 | Outpatient (CLI) | payer OTHER | END | disposition home or self-care (01) | LOC: C.LABSPEC 13:42 | PROVIDERS: ATTEND Obstetrics & Gynecology | DX: Z11.3 Encounter for screening for infections with a predominantly sexual mode of transmission (principal) ==

== ENCOUNTER 2019-11-16 20:19 | Observation (INO) ==
[2019-11-16] MEDS ORDERED: METOCLOPRAMIDE HCL INJ 5 MG/ML 2 ML VIAL IV STA (21:48)
[2019-11-16] MEDS ORDERED: DiphenhydrAMINE HCL 50 MG/ML VIAL IV STA (21:48)
[2019-11-16] MEDS ORDERED: SODIUM CHLORIDE 0.9% 1000ML 1,000 ML IV SCH (22:00)
[2019-11-16 22:26] LABS: Basophils # (auto) 0.01 K/uL (0-0.2); Basophils % (auto) 0.1 %; Eosinophils # (auto) 0.02 K/uL (0-0.5); Eosinophils % (auto) 0.2 %; Hematocrit (blood only) 39.6 % (37-47); Hemoglobin 13.7 g/dL (12.0-16.0); Immature Granulocytes # (auto) 0.03 K/uL (0.00-0.02); Immature Granulocytes % (auto) 0.3 %; Lymphocytes # (auto) 1.14 K/uL (1.2-3.4); Lymphocytes % (auto) 10.9 %; Mean Corpuscular Hemoglobin 32.9 pg (25-34); Mean Corpuscular Hgb Conc 34.6 g/dL (32-36); Mean Platelet Volume 10.2 fL (7.4-10.4); Monocytes # (auto) 0.65 K/uL (0.11-0.59); Monocytes % (auto) 6.2 %; Neutrophils # (auto) 8.61 K/uL (1.4-6.5); Neutrophils % (auto) 82.3 %; Platelet Count 312 K/uL (130-400); RDW Coefficient of Variation 12.9 % (11.5-14.5); RDW Standard Deviation 44.5 fL (36.4-46.3); Red Blood Count 4.17 M/uL (4.2-5.4); White Blood Count 10.46 K/uL (4.8-10.8)
[2019-11-16 22:35] LABS: Appearance Urine Clear (Clear); Bilirubin Urine Negative (Negative); Blood Urine Negative (Negative); Color Urine Yellow; Glucose Urine UA Negative (Negative); Ketones Urine Negative (Negative); Leukocyte Esterase Urine Negative (Negative); Nitrite Urine Negative (Negative); Protein Urine Negative (Negative); Specific Gravity Urine 1.011 (1.000-1.030); Urobilinogen Urine Negative (Negative); pH Urine 8.5 (4.5-7.5)
[2019-11-16 22:48] LABS: Alanine Aminotransferase 52 U/L (12-78); Albumin Level 4.3 gm/dl (3.4-5.0); Aspartate Aminotransferase 26 U/L (15-37); Blood Urea Nitrogen 10 mg/dl (7-18); Calcium 9.1 mg/dl (8.5-10.1); Carbon Dioxide 28 mmol/L (21-32); Chloride 111 mmol/L (98-107); Est GFR (African American) 143.9; Est GFR (Non-African American) 124.2; Glucose 133 mg/dl (70-99); Magnesium 2.1 mg/dl (1.8-2.4); Sodium 141 mmol/L (136-145)
[2019-11-16 22:59] LABS: Albumin Globulin Ratio 1.2 (0.9-2); Alkaline Phosphatase 94 U/L (45-117); Bilirubin,Total 0.4 mg/dl (0.2-1); Creatine Kinase 57 U/L (26-192); Globulin 3.6 gm/dl (2.5-4.0); Total Protein 7.9 gm/dl (6.4-8.2)
[2019-11-16 23:09] LABS: Lyme Ab IgG w/WB Rflx Negative (Negative); Lyme Ab IgM w/WB Rflx Negative (Negative)
[2019-11-17] MEDS ORDERED: DEXAMETHASONE **PF** INJ 10 MG/ML VIAL IV ONE (00:05)
[2019-11-17] MEDS ORDERED: SODIUM CHLORIDE 0.9% 1000ML 500 ML IV ONE (04:11)
--- NOTE | 2019-11-17 05:23 | Emergency Department Note ---
History of Present Illness General Chief complaint: Headache Stated complaint: MIGRAINE - 6 DAYS History of Present Illness Maximum Pain Intensity: 4 This 24-year-old presents to the ER complaining of migraine and generalized weakness Location: Generalized Quality: Weak Severity: Moderate Duration: 6 days Timing: Started 6 days ago Context: Symptoms got worse and patient came in Modifying factors: better with rest; worse with activity Patient called the on-call neurologist and was advised to go the ER. She received Toradol and Phenergan yesterday for the nurse at the neurologist. She follows with Dr. Bryant. Patient states she has a history of migraines and sometimes will get difficulty speaking and weakness but this is worse than baseline. Normal imaging in the past. Patient denies chest pain, dyspnea, localized weakness, vision problems, balance problems, numbness, tingling. Home Medications Home Medications Medication Instructions Recorded Confirmed Type loratadine 10 mg PO HS 08/17/18 11/16/19 History multivitamin 1 tab PO HS 08/17/18 11/16/19 History fremanezumab-vfrm 225 mg/1.5 mL 675 mg SUBCUT Q3MO ml 07/05/19 11/16/19 History subcutaneous syringe norethindrone (contraceptive) 0.35 0.35 mg PO HS 07/05/19 11/16/19 History mg tablet hydroxyzine pamoate 25 mg capsule 25 mg PO DAILY PRN cap 08/08/19 11/16/19 History lubiprostone 8 mcg capsule 8 mcg PO BID #60 cap 09/20/19 11/16/19 Rx nystatin-triamcinolone 1 applic TOP BID PRN 09/26/19 11/16/19 History triamcinolone acetonide 1 appln TOP DAILY PRN 09/26/19 11/16/19 History atenolol 25 mg tablet 12.5 mg PO QAM #90 tab 10/10/19 11/16/19 Rx ranitidine HCl 150 mg capsule 150 mg PO .COMPLEX #90 cap 11/06/19 11/16/19 Rx ondansetron 4 mg disintegrating 4 mg PO Q8H PRN #12 tab 11/09/19 11/16/19 Rx tablet zolmitriptan 2.5 mg nasal spray 2.5 mg INTNAS Q2H PRN #6 ea 11/09/19 11/16/19 Rx methylprednisolone 4 mg tablets in See Rx Instructions PO .COMPLEX 6 11/15/19 11/16/19 Rx a dose pack Days #1 pkt Allergies Allergy/AdvReac Type Severity Reaction Status Date / Time amoxicillin Allergy Mild HIVES Verified 11/16/19 23:01 hydrocodone AdvReac Mild Unknown Verified 11/16/19 23:01 doxycycline AdvReac EMOTIONAL Verified 11/16/19 23:01 DISTURBANCE AND ITCHY propranolol AdvReac DIZZY, Verified 11/16/19 23:01 EXCESSIVE THIRST AND LIGHT HEADED Past Med/Surg History Medical History Allergy TREES Anxiety Attention deficit disorder (ADD) Chronic nausea Chronic sinusitis Classic migraine with aura Depression with anxiety Dysfunctional uterine bleeding Eustachian tube dysfunction GERD (gastroesophageal reflux disease) History of palpitations CONTROLLED BY MEDICINE History of tremor History of vaginal pruritus Hx of skin disorder Non-allergic rhinitis Sinus headache Surgical History History of nasal surgery History of sinus surgery Hx of colonoscopy S/P wisdom tooth extraction Family History Mother Family history of diabetes mellitus Hypertension Hypercholesteremia Environmental allergies Grandmother (Maternal) Family history of diabetes mellitus Father Depression Environmental allergies Sinusitis Hypertension Family/Other Breast cancer great aunt Cancer Bleeding in brain due to brain aneurysm paternal cousin Colorectal cancer Aunt Cerebral aneurysm Family/Other Cerebral aneurysm Brother Environmental allergies Asperger syndrome Grandmother Heart disease Grandfather Heart disease Stroke Grandmother (Paternal) Cervical cancer Uncle Throat cancer maternal Other No family history of bleeding disorder Social History Preferred Language: [place] Communication Ability: Effective Lead Network Engineer Required: No Beliefs That Will Affect Care: None Current Living Situation: Family and Other Current Living Situation Comment: [employer] ST[employer] (LIVES IN APARTMENT WITH 1 ROOMMATE) Feels Safe at Home: Yes Smoking Status: Never smoker Second Hand Exposure: Yes (SOCIALLY) ; Hx Alcohol Use: Yes Alcohol type: beer, wine and hard liquor Hx Substance Use: No Review of Systems A total of 10 systems reviewed and were otherwise negative Physical Exam Vital Signs Vital Signs - 24 hr 11/16/19 20:23 11/16/19 22:23 11/16/19 23:08 Temperature 36.7 C Temperature Source Oral Pulse Rate 107 H Pulse Rate [Right] 90 Respiratory Rate 18 18 Respiratory Effort / Characteristics Non-Labored Spontaneous Respiratory Depth Normal Blood Pressure 128/81 Blood Pressure [Right Arm] 100/64 Blood Pressure Mean 96 Blood Pressure Mean [Right Arm] 76 Blood Pressure Position Sitting Blood Pressure Position [Right Arm] Sitting Pulse Oximetry 100 95 97 Oxygen Delivery Method Room Air Room Air Sepsis Recent Fever Within 48 Hours No Sepsis New/Unexplained Change in Mental Status No Sepsis Action Taken by Nursing No Action Required 11/17/19 00:22 11/17/19 05:52 Temperature Temperature Source Pulse Rate Pulse Rate [Right] 85 115 H Respiratory Rate Respiratory Effort / Characteristics Respiratory Depth Blood Pressure Blood Pressure [Right Arm] 109/66 133/88 Blood Pressure Mean Blood Pressure Mean [Right Arm] 80 103 Blood Pressure Position Blood Pressure Position [Right Arm] Pulse Oximetry 99 98 Oxygen Delivery Method Room Air Room Air Sepsis Recent Fever Within 48 Hours Sepsis New/Unexplained Change in Mental Status Sepsis Action Taken by Nursing VITALS: Vitals are noted on the nurse's note and reviewed by myself. Vital signs stable. GENERAL: White female able to move all extremities, in no acute distress, nondiaphoretic, well-developed well-nourished. SKIN: The skin was without rashes, erythema, edema, or bruising. There is no tenting of the skin. Capillary reflex less than 2 seconds. HEAD: Normocephalic atraumatic. EARS: External auditory canals clear, tympanic membranes pearly oden without erythema or effusion bilaterally. EYES: Pupils equal round and reactive to light and accommodation. Conjunctivae without injection, sclerae without icterus. Extraocular movements intact. NOSE: Patent, turbinates without inflammation or discharge. No sinus tenderness. MOUTH: Mucous membranes moist. Pharynx without erythema or exudate. Uvula midline. Airway patent. Tongue does not deviate. NECK: Supple without nuchal rigidity. No lymphadenopathy. No thyromegaly. Cervical spine is nontender. No JVD. HEART: Regular rate and rhythm without murmurs gallops or rubs. LUNGS: Clear to auscultation bilaterally without wheezes, rales or rhonchi. No retractions or accessory muscle use. ABDOMEN: Positive bowel sounds x 4. Normal tympanic percussion. Soft, nontender, without masses or organomegaly. Mata sign negative. No guarding or rebound tenderness. No CVA tenderness MUSCULOSKELETAL: No muscle atrophy, erythema, or edema noted. Decreased strength throughout. No localized weakness. NEURO: Patient was alert and oriented to person place and time. Normal sensation to light and sharp touch. No focal neurological deficits. Course Administered Medications Discontinued Medications Dexamethasone Sodium Phosphate (Decadron Pf) 10 mg IV NOW ONE Stop: 11/17/19 00:06 Last Admin: 11/17/19 00:22 Dose: 10 mg Documented by: [id number] Diphenhydramine HCl (Benadryl) 25 mg IV NOW STA Stop: 11/16/19 21:49 Last Admin: 11/16/19 22:17 Dose: 25 mg Documented by: [id number] Sodium Chloride (Nss 1000ml) 1,000 mls @ 999 mls/hr IV .Q1H1M SUDEEP Stop: 11/16/19 23:00 Last Infusion: 11/17/19 00:23 Dose: 0 mls/hr Documented by: [id number] Admin: 11/16/19 22:17 Dose: 999 mls/hr Documented by: [id number] Sodium Chloride (Nss 1000ml) 500 mls @ 999 mls/hr IV .Q31M ONE Stop: 11/17/19 04:41 Last Infusion: 11/17/19 05:53 Dose: 0 mls/hr Documented by: [id number] Admin: 11/17/19 04:43 Dose: 999 mls/hr Documented by: [id number] Metoclopramide HCl (Reglan) 10 mg IV NOW STA Stop: 11/16/19 21:49 Last Admin: 11/16/19 22:17 Dose: 10 mg Documented by: [id number] Medical Decision Making Medical Records Attestation: I reviewed the patient's medical records. Home Medications Current Medication List: was personally reviewed by me Laboratory Data Attestation: I reviewed the patient's lab results. Result diagrams: 11/16/19 22:12 11/16/19 22:12 Lab Results 11/16/19 11/16/19 11/16/19 Range/Units 22:12 22:12 22:12 WBC 10.46 (4.8-10.8) K/uL RBC 4.17 L (4.2-5.4) M/uL Hgb 13.7 (12.0-16.0) g/dL Hct 39.6 (37-47) % MCV 95.0 (80-100) fL MCH 32.9 (25-34) pg MCHC 34.6 (32-36) g/dL RDW Std Deviation 44.5 (36.4-46.3) fL RDW Coeff of Tammy 12.9 (11.5-14.5) % Plt Count 312 (130-400) K/uL MPV 10.2 (7.4-10.4) fL Immature Gran % (Auto) 0.3 % Neut % (Auto) 82.3 % Lymph % (Auto) 10.9 % Posey % (Auto) 6.2 % Eos % (Auto) 0.2 % Baso % (Auto) 0.1 % Immature Gran # (Auto) 0.03 H (0.00-0.02) K/uL Neut # (Auto) 8.61 H (1.4-6.5) K/uL Lymph # (Auto) 1.14 L (1.2-3.4) K/uL Posey # (Auto) 0.65 H (0.11-0.59) K/uL Eos # (Auto) 0.02 (0-0.5) K/uL Baso # (Auto) 0.01 (0-0.2) K/uL Sodium 141 (136-145) mmol/L Potassium 4.0 (3.5-5.1) mmol/L Chloride 111 H (98-107) mmol/L Carbon Dioxide 28 (21-32) mmol/L Anion Gap 2.0 L (3-11) BUN 10 (7-18) mg/dl Creatinine 0.68 (0.6-1.2) mg/dl Est Cr Clr Drug Dosing Not Reportable Est GFR ( Amer) 143.9 Est GFR (Non-Af Amer) 124.2 BUN/Creatinine Ratio 15.0 (10-20) Glucose 133 H (70-99) mg/dl Calcium 9.1 (8.5-10.1) mg/dl Magnesium 2.1 (1.8-2.4) mg/dl Total Bilirubin 0.4 (0.2-1) mg/dl AST 26 (15-37) U/L ALT 52 (12-78) U/L Alkaline Phosphatase 94 (45-117) U/L Total Creatine Kinase 57 (26-192) U/L Total Protein 7.9 (6.4-8.2) gm/dl Albumin 4.3 (3.4-5.0) gm/dl Globulin 3.6 (2.5-4.0) gm/dl Albumin/Globulin Ratio 1.2 (0.9-2) TSH 1.830 (0.300-4.500) uIu/ml Urine Color Urine Appearance (Clear) Urine pH (4.5-7.5) Ur Specific [place] (1.000-1.030) Urine Protein (Negative) Urine Glucose (UA) (Negative) Urine Ketones (Negative) Urine Blood (Negative) Urine Nitrite (Negative) Urine Bilirubin (Negative) Urine Urobilinogen (Negative) Ur Leukocyte Esterase (Negative) POC Ur Test (NEG) Lyme Disease IgG Ab Negative (Negative) Lyme Disease IgM Ab Negative (Negative) 11/16/19 11/16/19 Range/Units 22:12 22:12 WBC (4.8-10.8) K/uL RBC (4.2-5.4) M/uL Hgb (12.0-16.0) g/dL Hct (37-47) % MCV (80-100) fL MCH (25-34) pg MCHC (32-36) g/dL RDW Std Deviation (36.4-46.3) fL RDW Coeff of Tammy (11.5-14.5) % Plt Count (130-400) K/uL MPV (7.4-10.4) fL Immature Gran % (Auto) % Neut % (Auto) % Lymph % (Auto) % Posey % (Auto) % Eos % (Auto) % Baso % (Auto) % Immature Gran # (Auto) (0.00-0.02) K/uL Neut # (Auto) (1.4-6.5) K/uL Lymph # (Auto) (1.2-3.4) K/uL Posey # (Auto) (0.11-0.59) K/uL Eos # (Auto) (0-0.5) K/uL Baso # (Auto) (0-0.2) K/uL Sodium (136-145) mmol/L Potassium (3.5-5.1) mmol/L Chloride (98-107) mmol/L Carbon Dioxide (21-32) mmol/L Anion Gap (3-11) BUN (7-18) mg/dl Creatinine (0.6-1.2) mg/dl Est Cr Clr Drug Dosing Est GFR ( Amer) Est GFR (Non-Af Amer) BUN/Creatinine Ratio (10-20) Glucose (70-99) mg/dl Calcium (8.5-10.1) mg/dl Magnesium (1.8-2.4) mg/dl Total Bilirubin (0.2-1) mg/dl AST (15-37) U/L ALT (12-78) U/L Alkaline Phosphatase (45-117) U/L Total Creatine Kinase (26-192) U/L Total Protein (6.4-8.2) gm/dl Albumin (3.4-5.0) gm/dl Globulin (2.5-4.0) gm/dl Albumin/Globulin Ratio (0.9-2) TSH (0.300-4.500) uIu/ml Urine Color Yellow Urine Appearance Clear (Clear) Urine pH 8.5 H (4.5-7.5) Ur Specific [place] 1.011 (1.000-1.030) Urine Protein Negative (Negative) Urine Glucose (UA) Negative (Negative) Urine Ketones Negative (Negative) Urine Blood Negative (Negative) Urine Nitrite Negative (Negative) Urine Bilirubin Negative (Negative) Urine Urobilinogen Negative (Negative) Ur Leukocyte Esterase Negative (Negative) POC Ur Test NEG (NEG) Lyme Disease IgG Ab (Negative) Lyme Disease IgM Ab (Negative) Imaging Data Attestation: I personally reviewed and interpreted this imaging study as follows: [facility] Narrative Prior records/ancillary studies reviewed. Additional history obtained from family. Triage Nursing notes reviewed. The patient's history was concerning for headache with weakness. Differential diagnosis: Etiologies such as migraine headache, meningitis, sinusitis, CO exposure, ICH, SAH, infection, tumor, headache, sinus thrombosis, arterial dissection, as well as others were entertained. Physical examination findings: As above. Non-focal. ER treatment provided: IV fluids, Reglan, Benadryl, Decadron On reassessment the patient felt better. Diagnostics interpreted by me: The labs revealed no leukocytosis. Normal CPK. Negative urine Imaging studies: MRI HEAD : COMPARISON: Head CT dated 11/16/19 No evidence of acute infarct. No significant white matter abnormality. No intracranial hemorrhage, mass effect or edema. Left maxillary sinus mucous retention cyst. Radiologist: Geoffrey Verdin M.D. Consultation: A consultation was placed with the neurologist Dr. Garcia and recommends medical admission. He believes his symptoms are related to the migraine. I spoke to Dr. Venegas, hospitalist. The case was discussed and diagnostics were reviewed. The patient was evaluated in the ER for further treatment. This appears to be consistent with migraine with weakness. Patient states she was too weak to walk. Neurology and medicine were consulted. Patient will be evaluated for possible admission. Negative imaging. Negative CAT scan. Negative MRI. By the evaluation outlined above emergent etiologies such as meningitis, sinusitis, CO exposure, ICH, SAH, infection, temporal arteritis, tumor, sinus thrombosis, arterial dissection, as well as others were deemed relatively unlikely. The pt informed about the findings as listed above. All questions were answered and pleased with the treatment. Case reviewed with my attending The chart was completed utilizing [employer] Speech voice recognition software. Grammatical errors, random word insertions, pronoun errors, and incomplete sentences are an occassional consequence of this system due to software limitations, ambient noise, and hardware issues. Any formal questions or concerns about the content, text, or information contained within the body of this dictation should be directly addressed to the physician assistant professor of philosophy for clarification. Impression & Plan Migraine, Weakness Discharge Plan Visit Data Chief Complaint: Headache Stated Complaint: MIGRAINE - 6 DAYS ED Provider: Charlene Kelsey ED Midlevel Provider: Shannon Cedeno Discharge Problem: Migraine, Weakness Patient Disposition: Being Evaluated by Hospitalist Condition: Good Discharge Instructions Krames/Other Patient Handouts: ED Headache Migraine Activity Restrictions/Additional Instructions: DO NOT drive, drink alcohol, operate machinery, or perform dangerous activities today. You were given medications in the ER that can affect your ability to safely function or operate a vehicle. Your blood sugar was slightly elevated today. Recheck this with the family care doctor for possible diabetes. Rest today in a quiet, peaceful, dark environment and get a full 8-10 hrs of sleep tonight. Avoid loud noises, smoke/smoking, alcohol, bright lights, stress, or physical exertion today to minimize the chance the headache may return. Continue current medications. Ibuprofen(Motrin, Advil) may be used for fever or pain. Use 600mg every six hours as needed. Take with food. Avoid using more than 2400mg in a 24 hour period. Do not use 2400mg per day for more than three consecutive days without physician direction. Prolonged inappropriate use can lead to stomach upset or ulcers. (AND/OR) Acetaminophen(Tylenol) may be used for fever or pain. Use 1000mg every six hours as needed. Avoid using more than 3000mg in a 24 hour period. Return to the ER for passing out, worsening headache, vision problems, neck stiffness/pain, fevers, vomiting, worsening of your condition, or as needed. Follow up with your primary physician and/or a neurologist in 2-3 days for a recheck of your current condition. Forms Stand Alone Forms: [facility], Important Visit Information Prescriptions Prescriptions: No Action Amitiza 8 mcg capsule 8 mcg PO BID Qty: 60 RF: 2 atenolol 25 mg tablet 12.5 mg PO QAM Qty: 90 RF: 3 ranitidine HCl 150 mg capsule 150 mg PO .COMPLEX Qty: 90 RF: 3 methylprednisolone [Medrol (Eddi)] 4 mg tablets,dose pack See Rx Instructions PO .COMPLEX 6 Days Qty: 1 RF: 0 norethindrone (contraceptive) [Jeannine] 0.35 mg tablet 0.35 mg PO HS RF: 0 Zomig 2.5 mg spray,non-aerosol 2.5 mg INTNAS Q2H PRN (Reason: headache) Qty: 6 RF: 6 ondansetron 4 mg tablet,disintegrating 4 mg PO Q8H PRN (Reason: nausea and vomiting) Qty: 12 RF: 6 hydroxyzine pamoate 25 mg capsule 25 mg PO DAILY PRN (Reason: Anxiety) RF: 0 Hold Instructions: drug interactions with antibiotics multivitamin Tablet 1 tab PO HS RF: 0 loratadine 10 mg Tablet 10 mg PO HS RF: 0 nystatin-triamcinolone 100,000-0.1 unit/gram-% ointment 1 applic TOP BID PRN (Reason: SKIIN ISSUES) RF: 0 triamcinolone acetonide 0.1 % lotion 1 appln TOP DAILY PRN (Reason: SKIN ISSUES) RF: 0 fremanezumab-vfrm 225 mg/1.5 mL syringe 675 mg subcut Q3MO RF: 0 Referrals Referrals: Pilar Bryant MD [Primary Care Provider] - Discharge Problem: Migraine Qualifiers: Migraine type: without aura Status migrainosus presence: without status migrainosus Intractability: not intractable Qualified Code(s): G43.009 - Migraine without aura, not intractable, without status migrainosus
--- NOTE | 2019-11-17 06:13 | History & Physical Report ---
Date of Service November 17, 2019 Assessment & Plan (1) Migraine: History of chronic migraines- This migraine reported today lasting 1 week, when the usual duration is 1 day. Additional symptoms are those of paresthesias, generalized weakness, and more specifically lower extremity weakness bilaterally. She is also more fatigued than usual. CT of the head was negative for acute event. MRI brain was negative. We will order CTA head and neck. Order EEG. Order ESR, KENZIE, Monospot, CMV, human parvovirus, ehrlichiosis,, anaplasmosis, vitamin B12, folate level, cardiolipin antibodies, lupus anticoagulant, homocystine, beta-[address] Garcia covering for Dr. Bryant Present on Admission?: Yes (2) Weakness: See above Present on Admission?: Yes (3) Paresthesias: See above Present on Admission?: Yes (4) Tachycardia: Continue atenolol Present on Admission?: Yes (5) Palpitations: see above Present on Admission?: Yes History of Present Illness Chief Complaint: The patient presents to the emergency department with complaint of 1 week of persistent migraine headache, generalized weakness, paresthesias and bilateral lower extremity weakness making it difficult to walk. Primary Care Provider: Pilar Bryant MD The patient is a 24-year-old female with a past medical history of migraine, GERD, chronic daily headache, palpitations, tachycardia, classic migraine with aura, attention disturbance, chronic nausea, allergy and chronic sinusitis. She presents to the emergency department after speaking with Dr. Garcia environmental engineering manager who advised she come into the emergency department for further assessment. She reports 1 week of persistent migraine headache, and reports that her headaches usually last a day at most. She also has significant lower extremity weakness, making difficulty ambulating, which is a new finding for her as well. She denies any sick exposures or recent travels. She has no other change in her usual lifestyle patterns, Other than having gone through recent holiday. Allergies Allergy/AdvReac Type Severity Reaction Status Date / Time amoxicillin Allergy Mild HIVES Verified 11/16/19 23:01 hydrocodone AdvReac Mild Unknown Verified 11/16/19 23:01 doxycycline AdvReac EMOTIONAL Verified 11/16/19 23:01 DISTURBANCE AND ITCHY propranolol AdvReac DIZZY, Verified 11/16/19 23:01 EXCESSIVE THIRST AND LIGHT HEADED Home Medications Home Medications Medication Instructions Recorded Confirmed Type loratadine 10 mg PO HS 08/17/18 11/16/19 History multivitamin 1 tab PO HS 08/17/18 11/16/19 History fremanezumab-vfrm 225 mg/1.5 mL 675 mg SUBCUT Q3MO ml 07/05/19 11/16/19 History subcutaneous syringe norethindrone (contraceptive) 0.35 0.35 mg PO HS 07/05/19 11/16/19 History mg tablet hydroxyzine pamoate 25 mg capsule 25 mg PO DAILY PRN cap 08/08/19 11/16/19 History lubiprostone 8 mcg capsule 8 mcg PO BID #60 cap 09/20/19 11/16/19 Rx nystatin-triamcinolone 1 applic TOP BID PRN 09/26/19 11/16/19 History triamcinolone acetonide 1 appln TOP DAILY PRN 09/26/19 11/16/19 History atenolol 25 mg tablet 12.5 mg PO QAM #90 tab 10/10/19 11/16/19 Rx ranitidine HCl 150 mg capsule 150 mg PO .COMPLEX #90 cap 11/06/19 11/16/19 Rx ondansetron 4 mg disintegrating 4 mg PO Q8H PRN #12 tab 11/09/19 11/16/19 Rx tablet zolmitriptan 2.5 mg nasal spray 2.5 mg INTNAS Q2H PRN #6 ea 11/09/19 11/16/19 Rx methylprednisolone 4 mg tablets in See Rx Instructions PO .COMPLEX 6 11/15/19 11/16/19 Rx a dose pack Days #1 pkt Past Med/Surg History Medical History Allergy TREES Anxiety Attention deficit disorder (ADD) Chronic nausea Chronic sinusitis Classic migraine with aura Depression with anxiety Dysfunctional uterine bleeding Eustachian tube dysfunction GERD (gastroesophageal reflux disease) History of palpitations CONTROLLED BY MEDICINE History of tremor History of vaginal pruritus Hx of skin disorder Non-allergic rhinitis Sinus headache Surgical History History of nasal surgery History of sinus surgery Hx of colonoscopy S/P wisdom tooth extraction Family History Mother Family history of diabetes mellitus Hypertension Hypercholesteremia Environmental allergies Grandmother (Maternal) Family history of diabetes mellitus Father Depression Environmental allergies Sinusitis Hypertension Family/Other Breast cancer great aunt Cancer Bleeding in brain due to brain aneurysm paternal cousin Colorectal cancer Aunt Cerebral aneurysm Family/Other Cerebral aneurysm Brother Environmental allergies Asperger syndrome Grandmother Heart disease Grandfather Heart disease Stroke Grandmother (Paternal) Cervical cancer Uncle Throat cancer maternal Other No family history of bleeding disorder Social History Preferred Language: Lithuanian Communication Ability: Effective Cat Hooker Required: No Beliefs That Will Affect Care: None Current Living Situation: Family and Other Current Living Situation Comment: [employer] (LIVES IN APARTMENT WITH 1 ROOMMATE) Feels Safe at Home: Yes Smoking Status: Never smoker Second Hand Exposure: Yes (SOCIALLY) ; Hx Alcohol Use: Yes Alcohol type: beer, wine and hard liquor Hx Substance Use: No Review of Systems Review of Systems: The patient denies chest pain, palpitations, shortness of breath, dyspnea on exertion, cough, lower extremity swelling, sore throat, fevers, chills, sweats, nausea, vomiting, diarrhea , constipation, abdominal pain, pelvic pain, blood in urine or stool, dysuria, urinary frequency or urgency, memory loss, loss of consciousness, rash, abnormal bruising or bleeding, focal or generalized weakness, numbness or tingling in arms, back or neck pain, or night sweats. The review of systems is otherwise negative other than for that already noted above, and at least 10 systems have been reviewed. Physical Exam Physical Exam: The patient is awake, alert and oriented 3, well developed and well nourished, normocephalic and atraumatic, lying in bed and in no acute distress. HEENT--PERRL, EOMI, mucous membranes and oropharynx dry. Neck--supple. No JVD. No bruits. Thyroid normal, trachea midline, no adenopa thy. Heart--mildly tachycardic. Normal S1 and S2. No murmurs, rubs or gallops. Lungs--clear bilaterally, no respiratory distress, no accessory muscle use. Abdomen--normal bowel sounds and soft. Nontender. Nondistended. Extremities--no cyanosis or clubbing. No edema. Dermatologic--normal skin turgor, normal color, no abnormal lymph nodes, no rash. Neurologic--cranial nerves II through XII grossly intact. Motor and sensory exam normal upper extremities. Sensory examination normal lower extremities. Motor strength 4+ out of 5 bilateral lower extremities Rheumatologic--as above. Psychiatric--normal affect. Results & Data Vital Signs (Past 12 Hours) Vital Signs Temp Pulse Pulse Resp BP BP Pulse Ox 11/17/19 05:52 115 H 133/88 98 11/17/19 00:22 85 109/66 99 11/16/19 23:08 90 18 100/64 97 11/16/19 22:23 95 11/16/19 20:23 98.1 F 107 H 18 128/81 100 Laboratory Results Laboratory Results WBC 10.46 K/uL (4.8-10.8) 11/16/19 22:12 RBC 4.17 M/uL (4.2-5.4) L 11/16/19 22:12 Hgb 13.7 g/dL (12.0-16.0) 11/16/19 22:12 Hct 39.6 % (37-47) 11/16/19 22:12 MCV 95.0 fL (80-100) 11/16/19 22:12 MCH 32.9 pg (25-34) 11/16/19 22:12 MCHC 34.6 g/dL (32-36) 11/16/19 22:12 RDW Std Deviation 44.5 fL (36.4-46.3) 11/16/19 22:12 RDW Coeff of Tammy 12.9 % (11.5-14.5) 11/16/19 22:12 Plt Count 312 K/uL (130-400) 11/16/19 22:12 MPV 10.2 fL (7.4-10.4) 11/16/19 22:12 Immature Gran % (Auto) 0.3 % 11/16/19 22:12 Neut % (Auto) 82.3 % 11/16/19 22:12 Lymph % (Auto) 10.9 % 11/16/19 22:12 Early % (Auto) 6.2 % 11/16/19 22:12 Eos % (Auto) 0.2 % 12/27/19 22:12 Baso % (Auto) 0.1 % 11/16/19 22:12 Immature Gran # (Auto) 0.03 K/uL (0.00-0.02) H 11/16/19 22:12 Neut # (Auto) 8.61 K/uL (1.4-6.5) H 11/16/19 22:12 Lymph # (Auto) 1.14 K/uL (1.2-3.4) L 11/16/19 22:12 Early # (Auto) 0.65 K/uL (0.11-0.59) H 11/16/19 22:12 Eos # (Auto) 0.02 K/uL (0-0.5) 11/16/19 22:12 Baso # (Auto) 0.01 K/uL (0-0.2) 11/16/19 22:12 Sodium 141 mmol/L (136-145) 11/16/19 22:12 Potassium 4.0 mmol/L (3.5-5.1) 11/16/19 22:12 Chloride 111 mmol/L (98-107) H 11/16/19 22:12 Carbon Dioxide 28 mmol/L (21-32) 11/16/19 22:12 Anion Gap 2.0 (3-11) L 11/16/19 22:12 BUN 10 mg/dl (7-18) 11/16/19 22:12 Creatinine 0.68 mg/dl (0.6-1.2) 11/16/19 22:12 Est Cr Clr Drug Dosing Not Reportable 11/16/19 22:12 Est GFR ( Amer) 143.9 11/16/19 22:12 Est GFR (Non-Af Amer) 124.2 11/16/19 22:12 BUN/Creatinine Ratio 15.0 (10-20) 11/16/19 22:12 Glucose 133 mg/dl (70-99) H 11/16/19 22:12 Calcium 9.1 mg/dl (8.5-10.1) 11/16/19 22:12 Magnesium 2.1 mg/dl (1.8-2.4) 11/16/19 22:12 Total Bilirubin 0.4 mg/dl (0.2-1) 11/16/19 22:12 AST 26 U/L (15-37) 11/16/19 22:12 ALT 52 U/L (12-78) 11/16/19 22:12 Alkaline Phosphatase 94 U/L (45-117) 11/16/19 22:12 Total Creatine Kinase 57 U/L (26-192) 11/16/19 22:12 Total Protein 7.9 gm/dl (6.4-8.2) 11/16/19 22:12 Albumin 4.3 gm/dl (3.4-5.0) 11/16/19 22:12 Globulin 3.6 gm/dl (2.5-4.0) 11/16/19 22:12 Albumin/Globulin Ratio 1.2 (0.9-2) 11/16/19 22:12 TSH 1.830 uIu/ml (0.300-4.500) 11/16/19 22:12 Urine Color Yellow 11/16/19 22:12 Urine Appearance Clear (Clear) 11/16/19 22:12 Urine pH 8.5 (4.5-7.5) H 11/16/19 22:12 Ur Specific Valera 1.011 (1.000-1.030) 11/16/19 22:12 Urine Protein Negative (Negative) 11/16/19 22:12 Urine Glucose (UA) Negative (Negative) 11/16/19 22:12 Urine Ketones Negative (Negative) 11/16/19 22:12 Urine Blood Negative (Negative) 11/16/19 22:12 Urine Nitrite Negative (Negative) 11/16/19 22:12 Urine Bilirubin Negative (Negative) 11/16/19 22:12 Urine Urobilinogen Negative (Negative) 11/16/19 22:12 Ur Leukocyte Esterase Negative (Negative) 11/16/19 22:12 POC Ur Test NEG (NEG) 11/16/19 22:12 Lyme Disease IgG Ab Negative (Negative) 11/16/19 22:12 Lyme Disease IgM Ab Negative (Negative) 11/16/19 22:12 Code Status & VTE Plan Code Status full code VTE Prophylaxis Plan VTE Prophylaxis will be ordered: Yes PG Care Time/CCT Total # of Minutes Spent Total Time Spent with Patient: Total time spent is greater than 50% in coordination of care (as documented) at patient's floor/unit and/or counseling patient: (1) Migraine Intractability: not intractable Migraine type: without aura Status migrainosus presence: without status migrainosus Qualified Code(s): G43.009 - Migraine without aura, not intractable, without status migrainosus
[2019-11-17] MEDS ORDERED: ALUMINUM/MAGNESIUM SUSP 30 ML UDC PO PRN (06:36)
[2019-11-17] MEDS ORDERED: ACETAMINOPHEN 325 MG TAB PO PRN (06:36)
[2019-11-17] MEDS ORDERED: MAGNESIUM HYDROXIDE SUSP 30 ML UDC PO PRN (06:36)
[2019-11-17] MEDS ORDERED: ONDANSETRON INJ 2 MG/ML 2 ML VIAL IV PRN (06:36)
[2019-11-17] MEDS ORDERED: ONDANSETRON 4 MG OD TAB PO PRN (06:44)
[2019-11-17] MEDS ORDERED: TRIAMCINOLONE ACET 0.1% CR 15 GM TUBE EXT PRN (06:50)
--- NOTE | 2019-11-17 07:45 | Magnetic Resonance Report ---
MRI OF THE BRAIN WITHOUT CONTRAST CLINICAL HISTORY: Headache. Leg weakness. Difficulty speaking. COMPARISON STUDY: Head CT November 16, 2019. MRI of the brain March 06, 2017. TECHNIQUE: Utilizing a 1.5 Yancy magnet and dedicated coil, multiplanar, multiecho imaging of the bra in was performed without IV contrast. FINDINGS: There are no foci of restricted effusion. No acute intracranial hemorrhage, midline shift o r mass effect is present. Brain volume is normal. Ventricular system is normal. Basilar cisterns are patent. No intracranial masses identified on this unenhanced exam. No parenchymal signal abnormality is identified. A small mucous retention cyst within left maxillary sinus is noted. Calvarial signal i s normal. IMPRESSION: Unremarkable unenhanced MRI of the brain. ACT 112: Negative or not required by law. Electronically signed by: Adrian Steen M.D. 11/17/2019 7:43 AM
[2019-11-17] MEDS ORDERED: OPTIRAY 320 125ml IV PRN (08:54)
--- NOTE | 2019-11-17 09:21 | CT Scan Report ---
CT ANGIOGRAPHY OF THE NECK WITH CONTRAST CLINICAL HISTORY: migraines, weakness, paresthesias COMPARISON STUDY: MRI of the brain March 06, 2017. Head CT November 16, 2019. Technique: CT angiography of the carotid and vertebral arteries was obtained using [employer] 320 IV and 3D reconstruction on an independent workstation. NASCET criteria was utilized. Automated exposure c ontrol was utilized for the study. A dose lowering technique was utilized adhering to the principles of ALARA. Findings: The bilateral common carotid, cervical internal carotid and vertebral arteries are patent. There is no dissection or stenosis. There is no aneurysmal dilatation within these vessels. No cervic al lymphadenopathy is present. There is no cervical spine fracture. There is no soft tissue gas withi n the neck. Small mucous retention cyst within the left maxillary sinus is incidentally noted. IMPRESSION: Unremarkable CTA of the neck. ACT 112: Negative or not required by law. Electronically signed by: Adrian Steen M.D. 11/17/2019 9:20 AM
--- NOTE | 2019-11-17 09:24 | CT Scan Report ---
CTA ANGIOGRAPHY OF THE HEAD CLINICAL HISTORY: migraine, weakness, paresthesias COMPARISON STUDY: Head CT November 16, 2019 and MRI of the brain March 06, 2017 and November 17 9. TECHNIQUE: Helical axial images of the head were obtained following uneventful intravenous administr ation of 120 cc of [employer] 320. Automated exposure control was utilized for the study. A dose lower ing technique was utilized adhering to the principles of ALARA. CT DOSE: 576.75 mGy.cm FINDINGS: No acute intracranial hemorrhage, midline shift or mass effect is present. Ventricular syst em is normal. Basilar cisterns are patent. There are no extra-axial collections. The bilateral M1, M2 , A1 and A2 segments are patent. The posterior circulation is intact. There is no intracranial aneury sm, dissection, thrombus or abrupt vessel cut off. IMPRESSION: Unremarkable CTA of the head. ACT 112: Negative or not required by law. Electronically signed by: Adrian Steen M.D. 11/17/2019 9:22 AM
[2019-11-17 09:26] LABS: Folate (Folic Acid) 11.97 ng/ml (>5.38)
[2019-11-17] MEDS: ATENOLOL 25 MG TABLET PO SCH (10:26)
[2019-11-17] MEDS: LUBIPROSTONE 8 MCG CAP PO SCH ×2 (10:27→17:41)
--- NOTE | 2019-11-17 10:57 | Neurology Consultation ---
Date of Consultation November 17, 2019 Assessment & Plan (1) Migraine: Complicated migraine. Patient's migraine headache and speech hesitancy is resolved this morning. However, she continues to exhibit weakness of the legs and left upper extremity. I suspect the weakness is functional and related to her migraine. I do not think she has a classic hemiplegic migraine syndrome. There was clearly no evidence of stroke or acute process on her recently completed MRI of the brain. Likewise, her CT angiography of the head and neck are completely unremarkable. At this point, I would recommend a trial of verapamil SR 120 mg at bedtime for migraine prevention. This medication may be beneficial for complicated migraine. She may continue with her low-dose of atenolol which is prescribed both for tachycardia and migraine prevention. She may also continue with Ajovy for migraine prevention. Further, as her headache has resolved I would not recommend giving additional corticosteroids for "status migrainosus" at this time. Likewise, I would probably avoid a triptan at this point in time given that her headache has resolved. She may continue with her progestin only contraceptive. She will need to follow-up with Dr. Bryant in the outpatient clinic for further ongoing management of her migraines. (2) Weakness: This patient's bilateral leg and left upper extremity weakness does have a functional quality and has occurred, although to a lesser degree, with previous migraine episodes. As above, the weakness is probably a feature of complicated migraine. Yet, her lower extremity deep tendon reflexes are relatively brisk. Although my clinical suspicion for significant spinal cord or neuromuscular pathology is low in this patient, if her weakness persists then I think it would be necessary to obtain additional imaging including MRI of the cervical, thoracic, and lumbar spine. Would also consider outpatient neuromuscular evaluation including EMG of the limbs depending on her status going forward as well. I do not have an immediate intervention for this patient's apparent functional weakness. However, I do expect it to improve throughout the day. As per my examination of this patient, she was able to stand up on her own at bedside and take a few steps without any tendency for falling. Therefore, her degree of apparent weakness with direct muscle/motor testing seems out of proportion to her ability to stand and walk, thus potentially supporting a functional etiology. Would recommend consultation with PT/OT. Please contact me if I may be of further assistance. History of Present Illness Reason for Consultation: Migraine, weakness Requesting Physician: Ruy Terry MD Attending Physician: Taras Barnes DO History of Present Illness The patient is a 24-year-old female with a history of migraine with aura which began in childhood. She saw Dr. Bryant for an initial assessment of her migraines on November 09, 2019. The patient's migraines occur with fairly high frequency and she has been prescribed a variety of medications for prevention and acute treatment over many years. She has been taking Ajovy for about the past year. She does believe that this medication has been helpful in reducing her overall migraine frequency. The patient complains of a refractory migraine episode that began 1 week ago. She complains of associated visual aura, light and sound sensitivity, and generalized weakness. The symptoms have fluctuated. She was seen again in the outpatient office on November 15 and received an injection of Toradol and Phenergan as well as a prescription for a corticosteroid taper. She contacted the answering service last night complaining of generalized weakness with difficulty ambulating and associated speech hesitancy. Further assessment in the emergency department was recommended. The patient did receive additional treatment in the emergency department for status migrainosus including IV Decadron, Benadryl, metoclopramide, and IV fluids. Her headache this morning is resolved. Her speech hesitancy has resolved as well. However, she continues to complain of generalized weakness, especially the legs with inability to stand and ambulate on her own. She denies any associated numbness. She also complains of some weakness of the left upper extremity. She denies any associated neck or spinal pain. The patient does admit that she has had similar generalized weakness in the past in association with her migraines, although nothing to this degree or chronicity. An MRI of the brain completed in the emergency department was negative for acute process. Imaging described in further detail below. Allergies Allergy/AdvReac Type Severity Reaction Status Date / Time amoxicillin Allergy Mild HIVES Verified 11/16/19 23:01 hydrocodone AdvReac Mild Unknown Verified 11/16/19 23:01 doxycycline AdvReac EMOTIONAL Verified 11/16/19 23:01 DISTURBANCE AND ITCHY propranolol AdvReac DIZZY, Verified 11/16/19 23:01 EXCESSIVE THIRST AND LIGHT HEADED Home Medications Home Medications Medication Instructions Recorded Confirmed Type loratadine 10 mg PO HS 08/17/18 11/16/19 History multivitamin 1 tab PO HS 08/17/18 11/16/19 History fremanezumab-vfrm 225 mg/1.5 mL 675 mg SUBCUT Q3MO ml 07/05/19 11/16/19 History subcutaneous syringe norethindrone (contraceptive) 0.35 0.35 mg PO HS 07/05/19 11/16/19 History mg tablet hydroxyzine pamoate 25 mg capsule 25 mg PO DAILY PRN cap 08/08/19 11/16/19 History lubiprostone 8 mcg capsule 8 mcg PO BID #60 cap 09/20/19 11/16/19 Rx nystatin-triamcinolone 1 applic TOP BID PRN 09/26/19 11/16/19 History triamcinolone acetonide 1 appln TOP DAILY PRN 09/26/19 11/16/19 History atenolol 25 mg tablet 12.5 mg PO QAM #90 tab 10/10/19 11/16/19 Rx ranitidine HCl 150 mg capsule 150 mg PO .COMPLEX #90 cap 11/06/19 11/16/19 Rx ondansetron 4 mg disintegrating 4 mg PO Q8H PRN #12 tab 11/09/19 11/16/19 Rx tablet zolmitriptan 2.5 mg nasal spray 2.5 mg INTNAS Q2H PRN #6 ea 11/09/19 11/16/19 Rx methylprednisolone 4 mg tablets in See Rx Instructions PO .COMPLEX 6 11/15/19 11/16/19 Rx a dose pack Days #1 pkt Patient History Medical History Allergy TREES Anxiety Attention deficit disorder (ADD) Chronic nausea Chronic sinusitis Classic migraine with aura Depression with anxiety Dysfunctional uterine bleeding Eustachian tube dysfunction GERD (gastroesophageal reflux disease) History of palpitations CONTROLLED BY MEDICINE History of tremor History of vaginal pruritus Hx of skin disorder Non-allergic rhinitis Sinus headache Surgical History History of nasal surgery History of sinus surgery Hx of colonoscopy S/P wisdom tooth extraction Family History Mother Family history of diabetes mellitus Hypertension Hypercholesteremia Environmental allergies Grandmother (Maternal) Family history of diabetes mellitus Father Depression Environmental allergies Sinusitis Hypertension Family/Other Breast cancer great aunt Cancer Bleeding in brain due to brain aneurysm paternal cousin Colorectal cancer Aunt Cerebral aneurysm Family/Other Cerebral aneurysm Brother Environmental allergies Asperger syndrome Grandmother Heart disease Grandfather Heart disease Stroke Grandmother (Paternal) Cervical cancer Uncle Throat cancer maternal Other No family history of bleeding disorder Social History Preferred Language: [place] Communication Ability: Effective Morning Show [employer]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[employer] Producer Required: No Beliefs That Will Affect Care: None Current Living Situation: Family and Other Current Living Situation Comment: [employer] (LIVES IN APARTMENT WITH 1 ROOMMATE) Feels Safe at Home: Yes Smoking Status: Never smoker Second Hand Exposure: Yes (SOCIALLY) ; Hx Alcohol Use: Yes Alcohol type: beer, wine and hard liquor Hx Substance Use: No Review of Systems Constitutional: no fever and no chills Eyes: as per Subjective / HPI and + seeing flashes; no diplopia Ear, Nose, Mouth, Throat: no tinnitus and no hearing loss Respiratory: no cough and no dyspnea Cardiovascular: no chest pain and no palpitations Gastrointestinal: + nausea Genitourinary: no urinary incontinence Musculoskeletal: no back pain, no neck pain and no myalgia Integumentary: no rash and no lesions Neurologic: as per Subjective / HPI, + unsteadiness and + generalized weakness Psychiatric: no depression and no anxiety Hematologic / Lymphatic: no easy bleeding and no easy bruising Physical Exam Physical Exam: The patient is a well-developed, well-nourished adult female. She is alert and fully oriented. Recent and remote memory intact. Attention and concentration normal. Patient exhibits a normal spontaneous speech pattern as well as an age-appropriate fund of knowledge. She is able to name objects, and repeat phrases. Patient exhibits a normal comprehension of vocabulary. Visual hendricks full to confrontation. Visual acuity normal. Pupils equal round reactive to light and accommodation. Eye movements normal. There is no ptosis, nystagmus, or ophthalmoplegia. Facial sensation intact. There is no facial droop or weakness. Hearing intact. Palate elevates to midline. Shoulder shrug intact. Tongue protrudes to midline. Sensation intact all modalities in all 4 limbs. Deep tendon reflexes are 2+ for the upper extremities, 3+ at the patellas and Achilles tendons bilaterally. Plantar responses downgoing bilaterally. There is no dysmetria with [id number] on the right. Patient does display markedly slow movements with [id number] on the left although no gross ataxia. Patient unable to perform [id number] with either lower limb due to significant difficulty with movement. Ophthalmoscopic examination reveals normal-appearing optic disks and posterior segments. No papilledema or hemorrhages. Carotid pulses normal bilaterally, no bruits to auscultation. Patient was able to stand up on her own at the side of the bed. She took short cautious steps. Her legs did not buckle. Patient does display some functional appearing weakness with evaluation of muscle strength of the arms and legs. She is notably able to give a brief apparently full effort with normal strength for all 4 limbs. However, her legs tend to shake with attempts at movement. She was able to hold both the left and right leg out of the bed against gravity but seem to require great effort to do so. She seems to exhibit increased resistance to passive movement of the lower limbs. She is able to dorsiflex and plantarflex both ankles without difficulty. Patient also displays some difficulty with movement of the left upper limb, similar to her difficulty with the legs. There is increased resistance against passive movement of the left upper limb. Movements are done rather slowly and have a tremulous quality. She denies experiencing any associated pain with movement of her limbs. No resting or postural tremor. No atrophy. Results & Data Vital Signs (Past 12 Hours) Vital Signs Temp Pulse Resp BP Pulse Ox 11/17/19 07:51 37.0 C 103 H 18 111/70 95 11/17/19 05:52 115 H 133/88 98 11/17/19 00:22 85 109/66 99 11/16/19 23:08 90 18 100/64 97 Laboratory Results WBC 10.46, hemoglobin 13.7, hematocrit 39.6, platelet count 312, sedimentation rate 13, sodium 141, potassium 4.0, BUN 10, creatinine 0.68, glucose 133, calcium 9.1, magnesium 2.1, AST 26, ALT 52, total CK 57, vitamin B12 level 569, folate 11.97, TSH 1.830, Lyme antibody screening negative Diagnostic Findings MRI of the brain is unremarkable. No evidence of acute or subacute stroke. No hydrocephalus. No Chiari malformation. No significant parenchymal abnormality. I reviewed the images as well as the radiologist's interpretation of this test. CT angiography of the head and neck are normal. Electrocardiogram completed last night reveals sinus tachycardia, 123 bpm. (1) Migraine Intractability: not intractable Migraine type: without aura Status migrainosus presence: without status migrainosus Qualified Code(s): G43.009 - Migraine without aura, not intractable, without status migrainosus
--- NOTE | 2019-11-17 12:50 | CT Scan Report ---
CT OF THE HEAD WITHOUT CONTRAST CLINICAL HISTORY: Headache/weak/dsyarthria COMPARISON STUDY: MRI the brain March 06, 2017. CT DOSE: 537.48 mGy.cm TECHNIQUE: Helical axial images of the head were obtained without IV contrast. Automated exposure con trol was utilized for the study. A dose lowering technique was utilized adhering to the principles o f ALARA. FINDINGS: No acute intracranial hemorrhage, midline shift or mass effect is present. The ventricular system is unremarkable. The basilar cisterns are patent. No extra-axial collections are present. Ther e are no findings to suggest acute dural sinus thrombosis or acute territorial infarct. No significan t calvarial abnormalities are present. Visualized portions of the sinuses and mastoid air cells are c lear. IMPRESSION: No acute intracranial findings. ACT 112: Negative or not required by law. Electronically signed by: Adrian Steen M.D. 11/17/2019 12:48 PM
--- NOTE | 2019-11-17 15:27 | Hospitalist Progress Note ---
Date of Service November 17, 2019 Assessment & Plan (1) Migraine: 24y/o F with PMH of migraine, GERD, chronic daily headache, palpitations, tachycardia, classic migraine with aura, attention disturbance, chronic nausea, allergy and chronic sinusitis Migraine: - History of chronic migraines; this migraine reported today lasting 1 week, when the usual duration is 1 day. Additional symptoms are those of paresthesias, generalized weakness, and more specifically lower extremity weakness bilaterally. - CT of the head was negative - MRI brain was negative - CTA head and neck negative - EEG ordered - Neurology consulted: appreciate recs; starting verapamil daily at bed time - attempt IV depakote 500mg Q6h Weakness: - likely 2/2 migraine aura - if symptoms persist, then neuromuscular work-up needed for additional causes - this would take the form of MRI of cervical/thoracic/lumbar spine Diet: Regular Code: Full DVT ppx: (2) Weakness: Supervising Physician Co-Signing Physician Notes I personally examined the patient and verified all schroeder points of history and exam, discussed case, and agree with decision making with Dr Calvo. Not much of any headache, but feeling about the same as for his ongoing visual aura and weakness. Of note she is able to walk around, but she feels like she is not really able to well. She notes is been going on for about 6 or 7 days, the headache portion has essentially resolved, but she is still having all of these ongoing other symptoms. Neurology input appreciated. Vitals noted, in general she is awake and alert pleasant no distress. HEENT normocephalic atraumatic mucous membranes are moist. Breathing is unlabored no accessory muscle use good effort. Skin shows no rashes no pallor or icterus. Neuro shows cranial nerves II through XII are grossly intact gross motor and sensory are intact overall, she was observed walking to and from the bathroom fairly steadily earlier in the day. Osteopathic structural exam shows left greater than right suboccipitals to both be high in tone, tender, decreased range of motioninhibitory pressure with improvement. Patient tolerated well and did note some degree of change in her symptoms after OMT. Complicated migraineagree with initiation of verapamil, as well as agree with follow-through to ensure that this resolves and goes away (if not then agree with secondary work-up as proposed). We will additionally start Depakote to try to help break some of the neurologic phenomenon she is experiencing, we discussed the strong potential for it to cause a degree of sedation or grogginess. Given her surprising degree of suboccipital tension in spite of not having a headache at this time, I suspect that her chronic headache cycle is probably a combination of tension and migraine headaches not necessarily purely migraine alone, and we discussed how ongoing attention to her suboccipitals (initially with OMT professionally, than likely with self-management measures) would probably be of benefit to reducing her overall headache burden. Somatic dysfunction cervical regionOMT as above. Otherwise as above Subjective Continues to have some alternating muscle weakness, this has been sporadic throughout the last 6-7 days; has had no increase in anxiety over this time; she had some increase in stress with work a week ago where she did not have as much sleep two days prior to this starting. Review of Systems Eyes: + seeing flashes and + spots in vision; no diplopia, no loss of peripheral vision and no photophobia Ear, Nose, Mouth, Throat: no tinnitus, no hoarseness and no dysphagia Cardiovascular: no chest pain, no palpitations and no lightheadedness Neurologic: + generalized weakness, + tingling and + paresthesia; no falls Physical Exam Constitutional: WD/WN, vitals as above Eyes: PERRL, conjunctivae normal, anicteric sclerae Respiratory: normal respiratory effort, lungs clear to auscultation Cardiovascular: Rate/Rhythm: regular rate and regular rhythm Heart Sounds: normal S1 and normal S2; no gallop, no murmur and no cardiac rub Gastrointestinal (Abdomen): normal bowel sounds, soft, nontender, no hepatosplenomegaly Neurologic: deep tendon reflexes 2+ bilaterally, plantar reflexes intact bilaterally, moves all extremities and awake; no focal motor deficits and not confused Cranial Nerves: PERRL, EOM intact bilaterally, normal facial strength, tongue midline, normal hearing, able to rotate head bilaterally and able to elevate shoulders bilaterally Results & Data Vital Signs (Past 12 Hours) Vital Signs Temp Pulse Resp BP Pulse Ox 11/17/19 12:39 36.9 C 103 H 18 132/79 97 11/17/19 12:01 36.9 C 79 18 113/70 97 11/17/19 11:01 115 H 11/17/19 07:51 37.0 C 103 H 18 111/70 95 11/17/19 05:52 115 H 133/88 98 Laboratory Results 11/17/19 11/17/19 11/17/19 Range/Units 06:57 06:57 06:57 WBC (4.8-10.8) K/uL RBC (4.2-5.4) M/uL Hgb (12.0-16.0) g/dL Hct (37-47) % MCV (80-100) fL MCH (25-34) pg MCHC (32-36) g/dL RDW Std Deviation (36.4-46.3) fL RDW Coeff of Tammy (11.5-14.5) % Plt Count (130-400) K/uL MPV (7.4-10.4) fL Immature Gran % (Auto) % Neut % (Auto) % Lymph % (Auto) % [place] % (Auto) % Eos % (Auto) % Baso % (Auto) % Immature Gran # (Auto) (0.00-0.02) K/uL Neut # (Auto) (1.4-6.5) K/uL Lymph # (Auto) (1.2-3.4) K/uL [place] # (Auto) (0.11-0.59) K/uL Eos # (Auto) (0-0.5) K/uL Baso # (Auto) (0-0.2) K/uL ESR (0-21) mm/hr LA PTT Screen Sodium (136-145) mmol/L Potassium (3.5-5.1) mmol/L Chloride (98-107) mmol/L Carbon Dioxide (21-32) mmol/L Anion Gap (3-11) BUN (7-18) mg/dl Creatinine (0.6-1.2) mg/dl Est Cr Clr Drug Dosing Est GFR ( Amer) Est GFR (Non-Af Amer) BUN/Creatinine Ratio (10-20) Glucose (70-99) mg/dl Calcium (8.5-10.1) mg/dl Magnesium (1.8-2.4) mg/dl Total Bilirubin (0.2-1) mg/dl AST (15-37) U/L ALT (12-78) U/L Alkaline Phosphatase (45-117) U/L Total Creatine Kinase (26-192) U/L Total Protein (6.4-8.2) gm/dl Albumin (3.4-5.0) gm/dl Globulin (2.5-4.0) gm/dl Albumin/Globulin Ratio (0.9-2) Vitamin B12 (211-911) pg/ml Folate (>5.38) ng/ml Homocysteine Pending TSH (0.300-4.500) uIu/ml Urine Color Urine Appearance (Clear) Urine pH (4.5-7.5) Ur Specific [place] (1.000-1.030) Urine Protein (Negative) Urine Glucose (UA) (Negative) Urine Ketones (Negative) Urine Blood (Negative) Urine Nitrite (Negative) Urine Bilirubin (Negative) Urine Urobilinogen (Negative) Ur Leukocyte Esterase (Negative) POC Ur Test (NEG) KENZIE Screen Pending Beta-2-GPI IgG Ab Beta-2-GPI IgA Ab Beta-2-GPI IgM Ab Anti-Cardiolipin IgG Ab Pending Anti-Cardiolipin IgA Ab Pending Anti-Cardiolipin IgM Ab Pending A. phagocytophilum DNA Pending Lyme Disease IgG Ab (Negative) Lyme Disease IgM Ab (Negative) CMV IgM Ab Pending CMV IgG Ab/TORCH Pending E. chaffeensis IgG Ab Pending E. chaffeensis IgM Ab Pending E. chaffeensis Interp Pending E. chaffeensis Comment Pending EBV Capsid Ag IgG Ab Pending EBV Capsid Ag IgM Ab Pending EBV EA Restrict+Diffuse Pending EBV Nuclear Antigen Ab Pending EBV Antibody Interp Pending Monoscreen Negative (Negative) Parvovirus IgG Ab Index Pending Parvovirus IgM Ab Index Pending 11/17/19 11/17/19 11/17/19 Range/Units 06:57 06:57 06:57 WBC (4.8-10.8) K/uL RBC (4.2-5.4) M/uL Hgb (12.0-16.0) g/dL Hct (37-47) % MCV (80-100) fL MCH (25-34) pg MCHC (32-36) g/dL RDW Std Deviation (36.4-46.3) fL RDW Coeff of Tammy (11.5-14.5) % Plt Count (130-400) K/uL MPV (7.4-10.4) fL Immature Gran % (Auto) % Neut % (Auto) % Lymph % (Auto) % [place] % (Auto) % Eos % (Auto) % Baso % (Auto) % Immature Gran # (Auto) (0.00-0.02) K/uL Neut # (Auto) (1.4-6.5) K/uL Lymph # (Auto) (1.2-3.4) K/uL [place] # (Auto) (0.11-0.59) K/uL Eos # (Auto) (0-0.5) K/uL Baso # (Auto) (0-0.2) K/uL ESR 13 (0-21) mm/hr LA PTT Screen Pending Sodium (136-145) mmol/L Potassium (3.5-5.1) mmol/L Chloride (98-107) mmol/L Carbon Dioxide (21-32) mmol/L Anion Gap (3-11) BUN (7-18) mg/dl Creatinine (0.6-1.2) mg/dl Est Cr Clr Drug Dosing Est GFR ( Amer) Est GFR (Non-Af Amer) BUN/Creatinine Ratio (10-20) Glucose (70-99) mg/dl Calcium (8.5-10.1) mg/dl Magnesium (1.8-2.4) mg/dl Total Bilirubin (0.2-1) mg/dl AST (15-37) U/L ALT (12-78) U/L Alkaline Phosphatase (45-117) U/L Total Creatine Kinase (26-192) U/L Total Protein (6.4-8.2) gm/dl Albumin (3.4-5.0) gm/dl Globulin (2.5-4.0) gm/dl Albumin/Globulin Ratio (0.9-2) Vitamin B12 569 (211-911) pg/ml Folate 11.97 (>5.38) ng/ml Homocysteine TSH (0.300-4.500) uIu/ml Urine Color Urine Appearance (Clear) Urine pH (4.5-7.5) Ur Specific [place] (1.000-1.030) Urine Protein (Negative) Urine Glucose (UA) (Negative) Urine Ketones (Negative) Urine Blood (Negative) Urine Nitrite (Negative) Urine Bilirubin (Negative) Urine Urobilinogen (Negative) Ur Leukocyte Esterase (Negative) POC Ur Test (NEG) KENZIE Screen Beta-2-GPI IgG Ab Pending Beta-2-GPI IgA Ab Pending Beta-2-GPI IgM Ab Pending Anti-Cardiolipin IgG Ab Anti-Cardiolipin IgA Ab Anti-Cardiolipin IgM Ab A. phagocytophilum DNA Lyme Disease IgG Ab (Negative) Lyme Disease IgM Ab (Negative) CMV IgM Ab CMV IgG Ab/TORCH E. chaffeensis IgG Ab E. chaffeensis IgM Ab E. chaffeensis Interp E. chaffeensis Comment EBV Capsid Ag IgG Ab EBV Capsid Ag IgM Ab EBV EA Restrict+Diffuse EBV Nuclear Antigen Ab EBV Antibody Interp Monoscreen (Negative) Parvovirus IgG Ab Index Parvovirus IgM Ab Index 11/16/19 11/16/19 11/16/19 Range/Units 22:12 22:12 22:12 WBC (4.8-10.8) K/uL RBC (4.2-5.4) M/uL Hgb (12.0-16.0) g/dL Hct (37-47) % MCV (80-100) fL MCH (25-34) pg MCHC (32-36) g/dL RDW Std Deviation (36.4-46.3) fL RDW Coeff of Tammy (11.5-14.5) % Plt Count (130-400) K/uL MPV (7.4-10.4) fL Immature Gran % (Auto) % Neut % (Auto) % Lymph % (Auto) % [place] % (Auto) % Eos % (Auto) % Baso % (Auto) % Immature Gran # (Auto) (0.00-0.02) K/uL Neut # (Auto) (1.4-6.5) K/uL Lymph # (Auto) (1.2-3.4) K/uL [place] # (Auto) (0.11-0.59) K/uL Eos # (Auto) (0-0.5) K/uL Baso # (Auto) (0-0.2) K/uL ESR (0-21) mm/hr LA PTT Screen Sodium (136-145) mmol/L Potassium (3.5-5.1) mmol/L Chloride (98-107) mmol/L Carbon Dioxide (21-32) mmol/L Anion Gap (3-11) BUN (7-18) mg/dl Creatinine (0.6-1.2) mg/dl Est Cr Clr Drug Dosing Est GFR ( Amer) Est GFR (Non-Af Amer) BUN/Creatinine Ratio (10-20) Glucose (70-99) mg/dl Calcium (8.5-10.1) mg/dl Magnesium (1.8-2.4) mg/dl Total Bilirubin (0.2-1) mg/dl AST (15-37) U/L ALT (12-78) U/L Alkaline Phosphatase (45-117) U/L Total Creatine Kinase (26-192) U/L Total Protein (6.4-8.2) gm/dl Albumin (3.4-5.0) gm/dl Globulin (2.5-4.0) gm/dl Albumin/Globulin Ratio (0.9-2) Vitamin B12 (211-911) pg/ml Folate (>5.38) ng/ml Homocysteine TSH (0.300-4.500) uIu/ml Urine Color Yellow Urine Appearance Clear (Clear) Urine pH 8.5 H (4.5-7.5) Ur Specific [place] 1.011 (1.000-1.030) Urine Protein Negative (Negative) Urine Glucose (UA) Negative (Negative) Urine Ketones Negative (Negative) Urine Blood Negative (Negative) Urine Nitrite Negative (Negative) Urine Bilirubin Negative (Negative) Urine Urobilinogen Negative (Negative) Ur Leukocyte Esterase Negative (Negative) POC Ur Test NEG (NEG) KENZIE Screen Beta-2-GPI IgG Ab Beta-2-GPI IgA Ab Beta-2-GPI IgM Ab Anti-Cardiolipin IgG Ab Anti-Cardiolipin IgA Ab Anti-Cardiolipin IgM Ab A. phagocytophilum DNA Lyme Disease IgG Ab Negative (Negative) Lyme Disease IgM Ab Negative (Negative) CMV IgM Ab CMV IgG Ab/TORCH E. chaffeensis IgG Ab E. chaffeensis IgM Ab E. chaffeensis Interp E. chaffeensis Comment EBV Capsid Ag IgG Ab EBV Capsid Ag IgM Ab EBV EA Restrict+Diffuse EBV Nuclear Antigen Ab EBV Antibody Interp Monoscreen (Negative) Parvovirus IgG Ab Index Parvovirus IgM Ab Index 11/16/19 11/16/19 Range/Units 22:12 22:12 WBC 10.46 (4.8-10.8) K/uL RBC 4.17 L (4.2-5.4) M/uL Hgb 13.7 (12.0-16.0) g/dL Hct 39.6 (37-47) % MCV 95.0 (80-100) fL MCH 32.9 (25-34) pg MCHC 34.6 (32-36) g/dL RDW Std Deviation 44.5 (36.4-46.3) fL RDW Coeff of Tammy 12.9 (11.5-14.5) % Plt Count 312 (130-400) K/uL MPV 10.2 (7.4-10.4) fL Immature Gran % (Auto) 0.3 % Neut % (Auto) 82.3 % Lymph % (Auto) 10.9 % [place] % (Auto) 6.2 % Eos % (Auto) 0.2 % Baso % (Auto) 0.1 % Immature Gran # (Auto) 0.03 H (0.00-0.02) K/uL Neut # (Auto) 8.61 H (1.4-6.5) K/uL Lymph # (Auto) 1.14 L (1.2-3.4) K/uL [place] # (Auto) 0.65 H (0.11-0.59) K/uL Eos # (Auto) 0.02 (0-0.5) K/uL Baso # (Auto) 0.01 (0-0.2) K/uL ESR (0-21) mm/hr LA PTT Screen Sodium 141 (136-145) mmol/L Potassium 4.0 (3.5-5.1) mmol/L Chloride 111 H (98-107) mmol/L Carbon Dioxide 28 (21-32) mmol/L Anion Gap 2.0 L (3-11) BUN 10 (7-18) mg/dl Creatinine 0.68 (0.6-1.2) mg/dl Est Cr Clr Drug Dosing Not Reportable Est GFR ( Amer) 143.9 Est GFR (Non-Af Amer) 124.2 BUN/Creatinine Ratio 15.0 (10-20) Glucose 133 H (70-99) mg/dl Calcium 9.1 (8.5-10.1) mg/dl Magnesium 2.1 (1.8-2.4) mg/dl Total Bilirubin 0.4 (0.2-1) mg/dl AST 26 (15-37) U/L ALT 52 (12-78) U/L Alkaline Phosphatase 94 (45-117) U/L Total Creatine Kinase 57 (26-192) U/L Total Protein 7.9 (6.4-8.2) gm/dl Albumin 4.3 (3.4-5.0) gm/dl Globulin 3.6 (2.5-4.0) gm/dl Albumin/Globulin Ratio 1.2 (0.9-2) Vitamin B12 (211-911) pg/ml Folate (>5.38) ng/ml Homocysteine TSH 1.830 (0.300-4.500) uIu/ml Urine Color Urine Appearance (Clear) Urine pH (4.5-7.5) Ur Specific [place] (1.000-1.030) Urine Protein (Negative) Urine Glucose (UA) (Negative) Urine Ketones (Negative) Urine Blood (Negative) Urine Nitrite (Negative) Urine Bilirubin (Negative) Urine Urobilinogen (Negative) Ur Leukocyte Esterase (Negative) POC Ur Test (NEG) KENZIE Screen Beta-2-GPI IgG Ab Beta-2-GPI IgA Ab Beta-2-GPI IgM Ab Anti-Cardiolipin IgG Ab Anti-Cardiolipin IgA Ab Anti-Cardiolipin IgM Ab A. phagocytophilum DNA Lyme Disease IgG Ab (Negative) Lyme Disease IgM Ab (Negative) CMV IgM Ab CMV IgG Ab/TORCH E. chaffeensis IgG Ab E. chaffeensis IgM Ab E. chaffeensis Interp E. chaffeensis Comment EBV Capsid Ag IgG Ab EBV Capsid Ag IgM Ab EBV EA Restrict+Diffuse EBV Nuclear Antigen Ab EBV Antibody Interp Monoscreen (Negative) Parvovirus IgG Ab Index Parvovirus IgM Ab Index Medications Administered Current Inpatient Medications Acetaminophen (Tylenol) 650 mg PO Q4H PRN PRN Reason: Pain or Fever Stop: 12/17/19 06:35 Al Hydrox/Mg Hydrox/Simethicone (Maalox) 15 ml PO Q4H PRN PRN Reason: Dyspepsia Stop: 12/17/19 06:35 Atenolol (Tenormin) 12.5 mg PO QAM [facility] Stop: 12/17/19 08:59 Last Admin: 11/17/19 10:26 Dose: 12.5 mg Documented by: Hydroxyzine HCl (Vistaril) 25 mg PO DAILY PRN PRN Reason: Anxiety Stop: 12/17/19 06:35 Ioversol (Optiray 320 125ml) 120 ml IV ONCE PRN PRN Reason: Interaction Checking Stop: 11/21/19 08:53 Last Admin: 11/17/19 08:54 Dose: 120 ml Documented by: Loratadine (Claritin) 10 mg PO [facility] Stop: 12/17/19 20:59 Lubiprostone (Amitiza) 8 mcg PO BID [facility] Stop: 12/17/19 08:59 Last Admin: 11/17/19 10:27 Dose: 8 mcg Documented by: Magnesium Hydroxide (Milk Of Magnesia) 30 ml PO Q12H PRN PRN Reason: Constipation Stop: 12/17/19 06:35 Miscellaneous (Order Awaiting Action) 1 ea N/A QS [facility] Stop: 12/17/19 07:59 Last Admin: 11/17/19 12:27 Dose: Not Given Documented by: Miscellaneous (Order Awaiting Action) 1 ea N/A QS [facility] Stop: 12/17/19 07:59 Last Admin: 11/17/19 12:27 Dose: Not Given Documented by: Multivitamins (Multivitamin Tab) 1 tab PO [facility] Stop: 12/17/19 20:59 Ondansetron HCl (Zofran Odt) 4 mg PO Q8H PRN PRN Reason: Nausea And Vomiting Stop: 12/17/19 06:43 Ondansetron HCl (Zofran) 4 mg IV Q6H PRN PRN Reason: Nausea Stop: 12/17/19 06:35 Triamcinolone Acetonide (Kenalog 0.1%) 1 appln EXT DAILY PRN PRN Reason: .SKIN ISSUES Stop: 12/17/19 06:49 Resident Activity Tracking Resident Involvement: Resident Care Provided Care Provided: Adult [facility] Medicine (1) Migraine Intractability: not intractable Migraine type: without aura Status migrainosus presence: without status migrainosus Qualified Code(s): G43.009 - Migraine without aura, not intractable, without status migrainosus
[2019-11-17] MEDS ORDERED: VALPROATE SOD 500 MG in DEXTROSE 5% 50 ML IV STA (16:08)
--- NOTE | 2019-11-17 16:22 | Hospitalist Progress Note ---
Date of Service November 17, 2019 Results & Data Vital Signs (Past 12 Hours) Vital Signs Temp Pulse Resp BP Pulse Ox 11/17/19 12:39 98.4 F 103 H 18 132/79 97 11/17/19 12:01 98.4 F 79 18 113/70 97 11/17/19 11:01 115 H 11/17/19 07:51 98.6 F 103 H 18 111/70 95 11/17/19 05:52 115 H 133/88 98 PG Care Time/CCT Total # of Minutes Spent Total Time Spent with Patient: Total time spent is greater than 50% in coordination of care (as documented) at patient's floor/unit and/or counseling patient:
--- NOTE | 2019-11-17 16:22 | Billing Data ---
Date of Service November 17, 2019 Coding Level of Care Code 28625 Subseq Obs Care Lvl 3
[2019-11-17] MEDS ORDERED: MULTIVITAMIN TAB PO SCH (21:00)
[2019-11-17] MEDS ORDERED: VERAPAMIL HCL 120 MG TABCR PO SCH (21:00)
[2019-11-17] MEDS ORDERED: LORATADINE 10 MG TAB PO SCH (21:00)
[2019-11-17] MEDS ORDERED: VALPROATE SOD 500 MG in DEXTROSE 5% 50 ML IV ONE (22:00)
[2019-11-18] MEDS: LUBIPROSTONE 8 MCG CAP PO SCH (08:22)
[2019-11-18] MEDS: ATENOLOL 25 MG TABLET PO SCH (08:22)
[2019-11-18] MEDS ORDERED: VALPROATE SOD 500 MG in DEXTROSE 5% 50 ML IV ONE (10:00)
--- NOTE | 2019-11-18 10:03 | Neurology Progress Note ---
Date of Service November 18, 2019 Assessment & Plan (1) Migraine: Complicated migraine. Headache and weakness resolved. Patient continues to report mild visual phenomenon probably migrainous aura. I expect this particular symptom to improve on its own. Patient may continue with verapamil SR 120 mg at bedtime for migraine prevention. She will also continue with Ajovy and atenolol. Patient will need to follow-up with Dr. Bryant in the outpatient clinic for ongoing management of her migraines. Fortunately, she is doing much better at this time. (2) Weakness: Generalized weakness, migraine associated phenomenon, weakness was probably functional and seems to have resolved. Patient has an intact neurological examination although she continues to have relatively brisk deep tendon reflexes for the lower limbs in a symmetric fashion. This is probably chronic for her and not really indicative of [employer] or neuromuscular pathology. Given her symptom resolution, I do not think spinal imaging is necessary at this time. Likewise, I do not think outpatient electrodiagnostic testing (i.e. EMG) is necessary at this time. As above, I believe verapamil will be helpful for prevention of complicated migraine in this patient. She will follow-up with Dr. Bryant in the outpatient neurology clinic. Subjective Follow-up for migraine and weakness The patient reports considerable improvement in her symptoms compared with yesterday. No headache. She does report mild residual vision changes, brief sparkles and flashes of light, no blind spots or diplopia. Patient reports that her limb weakness is nearly resolved. She has been able to walk freely in her room without difficulty. No muscle pain. No numbness. No spinal pain. The weakness of the left upper extremity has resolved as well. Verapamil has been started at bedtime for complicated migraine. She has also been receiving IV Depakote for acute treatment. Review of Systems Eyes: as per Subjective / HPI Neurologic: as per Subjective / HPI Physical Exam Physical Exam: The patient is a well-developed, well-nourished adult female resting comfortably in bed in no acute distress. She is alert and fully oriented. Memory, attention, speech, and fund of knowledge are normal. Visual hendricks full to confrontation. Visual acuity normal. Pupils equal round reactive to light and accommodation. Eye movements normal. There is no nystagmus, ptosis, or ophthalmoplegia. There is no facial droop or weakness. Hearing intact. Palate elevates to midline. Shoulder shrug intact. Tongue protrudes to midline. Deep tendon reflexes are 2+ for the upper extremities, 3+ for the lower extremities. Plantar responses downgoing bilaterally. There is no dysdiadochokinesia or dysmetria with [id number] or [id number] bilaterally. Gait and station are normal. Patient exhibits normal muscle strength and tone for all 4 limbs. No atrophy. No abnormal movements observed. Results & Data Vital Signs (Past 12 Hours) Vital Signs Temp Pulse Pulse Resp BP BP Pulse Ox 11/18/19 08:00 36.8 C 87 20 94/59 L 97 11/18/19 02:54 36.7 C 51 L 18 99/58 L 92 11/17/19 22:59 36.9 C 50 L 16 102/66 94 (1) Migraine Intractability: not intractable Migraine type: without aura Status migrainosus presence: without status migrainosus Qualified Code(s): G43.009 - Migraine without aura, not intractable, without status migrainosus
--- NOTE | 2019-11-18 14:53 | Discharge Summary ---
Date of Service November 18, 2019 Admission HPI Per Admitting Provider The patient is a 24-year-old female with a past medical history of migraine, GERD, chronic daily headache, palpitations, tachycardia, classic migraine with aura, attention disturbance, chronic nausea, allergy and chronic sinusitis. She presents to the emergency department after speaking with Dr. Garcia fashion stylist who advised she come into the emergency department for further assessment. She reports 1 week of persistent migraine headache, and reports that her headaches usually last a day at most. She also has significant lower extremity weakness, making difficulty ambulating, which is a new finding for her as well. She denies any sick exposures or recent travels. She has no other change in her usual lifestyle patterns, Other than having gone through recent holiday. Principal Diagnosis Migraine Discharge Exam Constitutional WD/WN, vitals as above Eyes PERRL, conjunctivae normal, anicteric sclerae Respiratory normal respiratory effort, lungs clear to auscultation Cardiovascular Rate/Rhythm: regular rate and regular rhythm Heart Sounds: normal S1 and normal S2; no gallop, no murmur and no cardiac rub Gastrointestinal (Abdomen) normal bowel sounds, soft, nontender, no hepatosplenomegaly Neurologic deep tendon reflexes 2+ bilaterally, plantar reflexes intact bilaterally, moves all extremities and awake; no focal motor deficits and not confused Cranial Nerves: PERRL, EOM intact bilaterally, normal facial strength, tongue midline, normal hearing, able to rotate head bilaterally and able to elevate shoulders bilaterally Discharge Data Allergies Allergy/AdvReac Type Severity Reaction Status Date / Time amoxicillin Allergy Mild HIVES Verified 11/16/19 23:01 hydrocodone AdvReac Mild Unknown Verified 11/16/19 23:01 doxycycline AdvReac EMOTIONAL Verified 11/16/19 23:01 DISTURBANCE AND ITCHY propranolol AdvReac DIZZY, Verified 11/16/19 23:01 EXCESSIVE THIRST AND LIGHT HEADED Consultations 11/17/19 04:14 ED Decision to Admit Stat 11/17/19 06:36 Consult Case Management - Discharge Planning Routine Consult Neurology Routine Ordered Studies 11/16/19 21:49 CT head/brain wo con Stat 11/17/19 00:04 MR brain wo con Stat 11/17/19 06:36 CT angio neck with con Stat 11/17/19 06:36 CT angio head w con Stat Hospital Course (1) Migraine: 24y/o F with PMH of migraine, GERD, chronic daily headache, palpitations, tachycardia, classic migraine with aura, attention disturbance, chronic nausea, allergy and chronic sinusitis Complex Migraine with partial hemiplegia: - History of chronic migraines; this migraine reported today lasting 1 week, when the usual duration is 1 day. Additional symptoms are those of paresthesias, generalized weakness, and more specifically lower extremity weakness bilaterally. No current exogenous stressor that patient can identify, but baseline anxiety may be partially contributory. - CT of the head was negative - MRI brain was negative - CTA head and neck negative - Neurology consulted: appreciate recs; switched Atenolol for Verapamil 120mg QHS Weakness: - likely 2/2 migraine aura - if symptoms persist, then neuromuscular work-up needed for additional causes - this would take the form of MRI of cervical/thoracic/lumbar spine Code Status: Full (2) Weakness: Total Time Total Time Spent Total Time Spent (In Minutes): >30 Discharge Plan Discharge Items Patient Disposition: Home - Self-Care Reason For Visit: MIGRAINE, PARESTHESIAS, WEAKNESS Discharge Diagnosis: Complex Migraine with Aura Condition on Discharge: Good Activity: Per Instructions section Non-emergency contact: Primary Care Provider Call non-emergency contact if: your symptoms worsen Follow-up/Referrals: Pilar Bryant MD [Primary Care Provider] - Diet: Regular Addtl Attending Provider Instructions: You were admitted following having several days of weakness and numbness and c hanges to your vision; during this admission we evaluated the nature to this through numerous imaging that did not demonstrate an structural cause for what you were feeling. After being seen by the neurologist, it was determined that this was likely all a complex form of your migraines that you get on baseline; migraines can be incredibly complex and varying in the ways that they present themselves. At this time, it would be best for you to continue to work on the varying relaxation techniques we discussed; this would look like the progressive muscle relaxation techniques, and the sub-occipital release (with Dr. Ken Cifuentes). These will be great methods over the coming weeks, in addition to the added verapamil for control/limitation of your migraines going forward. The verapamil will be continued now that you are being discharged in place of the atenolol. It is important in the coming weeks that you follow up with your family doctor, your neurologist, and Dr. Cifuentes for the continued care of your migraines. Pending Studies at Discharge: No Stand-Alone Forms: My [facility], Smoking Cessation Medications and DC Order Prescriptions: New verapamil 120 mg Tablet Extended Release 120 mg PO QPM 30 Days Qty: 30 RF: 0 Continued Amitiza 8 mcg capsule 8 mcg PO BID Qty: 60 RF: 2 ranitidine HCl 150 mg capsule 150 mg PO .COMPLEX Qty: 90 RF: 3 norethindrone (contraceptive) [Jeannine] 0.35 mg tablet 0.35 mg PO HS RF: 0 Zomig 2.5 mg spray,non-aerosol 2.5 mg INTNAS Q2H PRN (Reason: headache) Qty: 6 RF: 6 ondansetron 4 mg tablet,disintegrating 4 mg PO Q8H PRN (Reason: nausea and vomiting) Qty: 12 RF: 6 hydroxyzine pamoate 25 mg capsule 25 mg PO DAILY PRN (Reason: Anxiety) RF: 0 Hold Instructions: drug interactions with antibiotics multivitamin Tablet 1 tab PO HS RF: 0 loratadine 10 mg Tablet 10 mg PO HS RF: 0 nystatin-triamcinolone 100,000-0.1 unit/gram-% ointment 1 applic TOP BID PRN (Reason: SKIIN ISSUES) RF: 0 triamcinolone acetonide 0.1 % lotion 1 appln TOP DAILY PRN (Reason: SKIN ISSUES) RF: 0 fremanezumab-vfrm 225 mg/1.5 mL syringe 675 mg subcut Q3MO RF: 0 Discontinued atenolol 25 mg tablet 12.5 mg PO QAM Qty: 90 RF: 3 methylprednisolone [Medrol (Eddi)] 4 mg tablets,dose pack See Rx Instructions PO .COMPLEX 6 Days Qty: 1 RF: 0 Discharge Orders: Discharge Order (Routine); Ordered 11/18/19 Ordered By: Thiago Calvo Admission Data Admit Date/Time: 11/17/19 06:02 Attending Provider: Taras Barnes Admit Provider: Ruy Terry Primary Care Provider: Pilar Bryant Other Providers: Ruy Terry ; Shaq Garcia Other Interventions: Discharge Summary Assessment (RN) Last Done: 11/18/19 14:45 DC Date/Time DO NOT enter until pt leaves facility: 11/18/19 16:15 Supervising Physician Co-Signing Physician Notes I personally examined the patient and verified all schroeder points of history and exam, discussed case, and agree with decision making with Dr Calvo. Feeling a little bit better, and with the plan in place as well as the extensive work-up that is reassuring, she does feel up to going home. Vitals noted, in general she is awake and alert pleasant no distress. HEENT no rmocephalic atraumatic mucous membranes are moist. Breathing is unlabored no accessory muscle use good effort. Skin shows no rashes no pallor or icterus. Neuro shows cranial nerves II through XII are grossly intact gross motor and sensory are intact overall. Complicated migrainestable for home on verapamil. Stress management techniques, close PCP follow-up, OMT referral to Dr. Cifuentes for suboccipital tension, follow-up with neurology. Secondary work-up if symptoms worsen or do not nabor. All questions answered, patient and family all happy and comfortable with plan. Somatic dysfunction cervical regionOMT done on 11/17, referral to Dr. Cifuentes for ongoing OMT for this. Otherwise as above Resident Activity Tracking Resident Involvement: Resident Care Provided Care Provided: Adult Hospital Medicine
--- NOTE | 2019-11-18 19:14 | Billing Data ---
Date of Service November 18, 2019 Coding Level of Care Code 52083 OBS Care - Discharge
[2019-11-20 22:42] LABS: B2 Glycoprotein IgA <9 SAU (<=20); B2 Glycoprotein IgG <9 SGU (<=20); B2 Glycoprotein IgM <9 SMU (<=20); PTT LA Screen 32 sec (<=40)
[2019-11-22 22:09] LABS: Anti Cardiolipin Ab IgG <14 GPL; Anti Cardiolipin Ab IgM <12 MPL; Anti Nuclear Antibody Screen POSITIVE (NEGATIVE); Anti-Cardiolipin Ab IgA <11 APL; CMV IgG Antibody <0.60 U/mL; CMV IgM Antibody <30.00 AU/mL; EBV Nuclear Ag Antibody <18.00 U/mL; EBV Virus Capsid Ag IgG Ab <18.00 U/mL; Ehrlichia chaff IgM Ab <1:20 (<1:20); Ehrlichia chaff Interpret Past Infection; Epstein Barr Virus Early Ag Ab <9.00 U/mL; Parvovirus IgG 0.3 (<0.9); Parvovirus IgM 0.1 (<0.9)
[2019-11-23 08:28] LABS: ANA Pattern Nuclear, Homogeneous; ANA Pattern 2 Nuclear, Speckled
== END 2019-11-18 16:15 | disposition home or self-care (01) ==
LOC: ED 20:19 → 2N 20:19 → SUATTDRO 11-17 06:02 → 2N 11-17 06:27